=== PATIENT | male | born 1995 | race Caucasian/White ===

== ENCOUNTER 2021-01-04 09:36 | Inpatient (IN) | payer BC, SELFPAY ==
[2021-01-04 09:40] VITALS: BP 136/75; PULSE 89; RESP 22; TEMP 36.6; O2SAT 100
--- NOTE | 2021-01-04 09:53 | DI.US_ITS ---
Exam(s) US ABDOMEN LIMITED EXAM: US ABDOMEN LIMITED CLINICAL HISTORY: RUQ and epigastric pain, please comment on pancrea TECHNIQUE: Ultrasound abdomen performed using standard protocol. COMPARISON: No exams were available for comparison FINDINGS: There is no ascites evident. LIVER: There are no hepatic lesions evident nor dilatation of intrahepatic ducts. GALLBLADDER/BILIARY: There are no gallstones. No gallbladder wall edema nor pericholecystic fluid. The common hepatic duct isnot dilated, measuring 3mm at the level of kingsley hepatis. PANCREAS: There is no evidence of pancreatic mass nor dilatation of the pancreatic duct. RIGHT KIDNEY:No evidence of solid mass, calculus, nor hydronephrosis. No cortical cysts evident. IMPRESSION: 1. No evidence of cholelithiasis nor dilatation of the biliary tree. 2. No other significant ultrasound findings in the right upper quadrant. 3. There is no ascites. DATA REPOSITORY:
--- NOTE | 2021-01-04 09:56 | ED.GENADUL_ITS ---
Discharge Plan Disposition Patient Disposition: [facility] INPATIENT Condition: Stable Discharge Details Clinical Impression: Intractable vomiting with nausea, Gilbert disease Admit Date/Time: 01/04/21 17:03 Admit Provider: Bladimir Newby Attending Provider: Bladimir Newby Primary Care Provider: Domingo Hedrick ED Provider: Maritza Cisneros Discharge Data Discharge Date/Time-TO BE ENTERED AT DEPARTURE: 01/04/21 18:26 Medical Decision Making Patient initially feeling symptomatically improved after Compazine, Zofran, and Phenergan, received 3 L of IV hydration, however on reassessment, patient is vomiting again after p.o. challenge He denies any history of cannabis use History of anxiety denies any history similar to this in the past. He has a CT scan that did not show acute abnormality He has an ultrasound that does not show acute abnormality, his bilirubin is 6, his previous at [facility] was 1.7 His mag is stable and electrolytes are otherwise stable, he does have a gap of 18 At this time, patient is still quite nauseous and I think she would benefit from admission and observation I reviewed patient's prior diagnostic labs and emergency room assessment from [facility] Medical Records Medical records reviewed: Yes I reviewed the patient's medical records. Lab Data Lab results reviewed: Yes I reviewed the patient's lab results. ECG Data Prior ECG tracings: available for review HPI General Mode of arrival: ambulatory . Date/Time Provider Initiated Documentation: 01/04/21 09:43 . Limitations to Documentation: no limitations . Information obtained by: patient . HPI Narrative: This 25-year-old male presents with report of vomiting, nausea, abdominal pain. Abdominal pain started first reportedly approximately a week prior to arrival. He states that predominantly when he ate and drink he would get a pressure in his upper abdomen. He denies any chest pain or shortness of breath. He states he feels weak and lightheaded but not dizzy. He denies any history of alcoholism or illicit drug use. He denies any known sick contacts. He denies any cough or urinary symptoms. Related Data Home Medications Medication Instructions Recorded Confirmed ondansetron HCl 4 mg PO Q6H PRN 01/04/21 01/04/21 Allergies Allergy/AdvReac Type Severity Reaction Status Date / Time No Known Allergies Allergy Unverified 01/04/21 09:42 General Stated Complaint: Nausea/Vomit/Diar JAMAL: 3 Review of Systems All systems reviewed & are unremarkable except as noted in HPI and below PFSH Social History Smoking/Tobacco Use Status: Never Smoking risk assessment performed?: Yes Alcohol Intake: never Substance use type: does not use Do you feel safe at home: Yes Do you feel safe in your relationship?: Yes Exam Const General: cooperative and ill appearing Orientation: alert and oriented x3 HENMT Other: Moist mucous membrane Eyes Other: icterus Chest Chest: normal inspection of the chest Resp Effort & Inspection: normal respiratory effort Cardio Rate: regular rate GI Other: Right upper quadrant and epigastric abdominal tenderness Skin Other: Jaundice noted Neuro General: patient alert and patient oriented x3 Extrem Other: Distal pulses intact Course Vital Signs Vital signs: Vital Signs Temperature 36.6 C 01/04/21 09:40 Pulse 89 01/04/21 09:40 Respiratory Rate 22 01/04/21 09:40 Blood Pressure 136/75 01/04/21 09:40 Pulse Oximetry 100 01/04/21 09:40 Temperature 36.6 C 01/04/21 09:40 Temperature Source Temporal Artery Scan 01/04/21 09:40 Pulse 89 01/04/21 09:40 Respiratory Rate 22 01/04/21 09:40 Respiratory Effort Non-Labored 01/04/21 09:43 Blood Pressure 136/75 01/04/21 09:40 Blood Pressure Position Sitting 01/04/21 09:40 Pulse Oximetry 100 01/04/21 09:40 Oxygen Delivery Method Room Air 01/04/21 09:40 Oxygen Flow Rate 0 01/04/21 09:40 Pain Level 7 01/04/21 09:40
[2021-01-04] MEDS: Ondansetron 4 MG/2 ML VIAL IVP (10:16)
[2021-01-04 10:18] LABS: Abs Immature Grans 0.02 10^3/uL (0.0-0.06); Absolute Basophil Count 0.03 10^3/uL (0.0-0.2); Absolute Eosinophil Count 0.03 10^3/uL (0.0-0.7); Absolute Lymphocyte Count 1.26 10^3/uL (1.2-3.4); Absolute Monocyte Count 0.65 10^3/uL (0.1-0.8); Absolute Neutrophil Count 5.59 10^3/uL (1.2-6.7); Basophils % 0.4; Eosinophils % 0.4; HCT 44.2 % (40.0-50.0); HGB 15.8 g/dL (13.5-17.5); Immature Grans % 0.3; Lymphocytes % 16.6; MCH 31.6 pg (27.0-33.0); MCHC 35.7 % (32.0-36.0); MCV 88.4 fL (80-95); MPV 10.1 fL (8.0-11.0); Monocytes % 8.6; Neutrophils % 73.7; Nucleated RBC 0 %; Platelet Count 285 10^3/uL (130-400); RDW 11.5 % (11.8-14.1); RDW-SD 36.8 fL; WBC 7.58 10^3/uL (4.4-10.8)
[2021-01-04] MEDS: fentaNYL 100 MCG/2 ML VIAL 50 MCG IVP (10:25)
[2021-01-04] MEDS: Normal Saline 1,000 ML 1000 ML IV (10:26)
[2021-01-04] MEDS: Prochlorperazine 10 MG/2 ML VIAL IVP (10:32)
[2021-01-04 10:37] LABS: ALT 22 U/L (16-63); AST 28 U/L (15-37); Albumin 4.7 g/dL (3.4-5.0); Alkaline Phosphatase 67 U/L (46-116); Amylase 37 U/L (25-115); BUN 14 mg/dL (7-18); CREATININE 1.2 mg/dL (0.70-1.30); Calcium 9.5 mg/dL (8.5-10.1); Chloride 101 mmol/L (98-107); Glucose 96 mg/dL (74-106); Lipase 88 U/L (73-393); Potassium 3.7 mmol/L (3.5-5.1); Sodium 140 mmol/L (136-145); Total Protein 8.4 g/dL (6.4-8.2)
[2021-01-04 10:38] LABS: Magnesium 2.4 mg/dL (1.8-2.4)
[2021-01-04 11:19] LABS: Bilirubin, Direct 0.3 mg/dL (0.0-0.2)
--- NOTE | 2021-01-04 11:45 | RT.EKG_ITS ---
APPROVED REPORT Exam: Resting ECG Reason for Exam: multiple antiemetics Patient Location: E HR:80 bpm ECG Measurements Heart Rate 80 AXIS OK 102 P 77 QRSd 87 QRS 74 QT 386 T 21 QTc 445 Conclusion Sinus rhythm...normal P axis, V-rate 60- 99 QRS okay, [id number]. No STEMI, non-diagnostic EKG. I have reviewed and interpreted ECG and agree with software generated interpretation.
[2021-01-04 11:59] LABS: INR 1.1 (0.9-1.1); Prothrombin Time 11.3 sec (9.3-11.0)
[2021-01-04] MEDS: Lactated Ringers 1,000 ML 2000 ML IV (12:18)
--- NOTE | 2021-01-04 12:45 | DI.CT_ITS ---
Exam(s) CT ABDOMEN PELVIS W EXAM: CT ABDOMEN PELVIS W CLINICAL HISTORY: persistent vomiting, epigastric pain. TECHNIQUE: Imaging Protocol: Axial computed tomography images with coronal and sagittal reformatted images were created and reviewed CONTRAST MATERIAL: Intravenous: Omnipaque 100cc Oral: None COMPARISON: No exams were available for comparison FINDINGS: VISUALIZED LUNG BASES: No nodules nor pleural effusions evident. ABDOMEN: There is no ascites. LIVER: There are no focal hepatic lesions evident . GALLBLADDER/BILIARY: No obvious gallbladder pathology. CBD is not dilated. PANCREAS: No evidence of pancreatic mass nor dilatation of the pancreatic duct. SPLEEN: Spleen is not enlarged. No obvious intrasplenic lesions. Splenic and portal veins are paten t. ADRENALS: There are no significant adrenal masses. KIDNEYS:No cysts evident. No solid renal masses. No calculi nor hydronephrosis.. ABDOMINAL AORTA: Abdominal aorta is not enlarged. LYMPH NODES:There is no retroperitoneal nor paraaortic adenopathy. ABDOMINAL WALL: No evidence of significant anterior abdominal wall nor inguinal hernia. GI: Transverse colon exhibit some a somewhat colitis-type pattern although this may be mimicked by un marcello distension. No bowel obstruction. No free air PELVIS: GI: Appendix is not able to be seen. No obvious appendicitis.No evidence of sigmoid diverticulitis. LYMPH NODES: There is no intrapelvic nor inguinal adenopathy. REPRODUCTIVE: Prostate and seminal vesicles unremarkable. URINARY BLADDER: No calculi nor obvious masses evident OSSEOUS: No significant osseous lesions. There are bilateral pars defects at the L5 level with mild anterolisthesis of L5 upon S1. IMPRESSION: 1. There is subtle suggestion of a colitis-type pattern in the transverse colon. Correlation with cl inical findings recommended as this finding can be mimicked by under distension due to lack of oral c ontrast therein. 2. No evidence of appendicitis. Appendix may be surgically absent. 3. Bilateral pars defects at L5. Mild anterolisthesis L5 upon S1 evident. 4. RADIATION DOSE DELIVERED: 711.8mGy.cm Total DLP DATA REPOSITORY: All CT scans at this facility are submitted to the National Radiology Data Registry (NRDR) Dose Index Registry (DIR) with the [employer] ([employer]). RADIATION OPTIMIZATION: All CT scans at this facility use at least one of these dose optimization te chniques: automated exposure control; mA and/or kV adjustment per patient size (includes targeted exa ms where dose is matched to clinical indication); or iterative reconstruction.
[2021-01-04 13:43] VITALS: RESP 16
[2021-01-04] MEDS: Omnipaque 350 MG/ML 100 ML BTL IV (14:10)
[2021-01-04] MEDS: Normal Saline - Diluent 50 ML VIAL IV (14:11)
[2021-01-04] MEDS: Lactated Ringers 1,000 ML 1000 ML IV (14:27)
[2021-01-04 15:01] VITALS: BP 124/56; PULSE 85; RESP 16; TEMP 37; O2SAT 100
[2021-01-04 15:52] LABS: BUN 11 mg/dL (7-18); Bilirubin, Total 4.4 mg/dL (0.2-1.0); CREATININE 1.2 mg/dL (0.70-1.30); Calcium 8.4 mg/dL (8.5-10.1); Chloride 104 mmol/L (98-107); Glucose 92 mg/dL (74-106); Potassium 3.7 mmol/L (3.5-5.1); Sodium 141 mmol/L (136-145)
[2021-01-04] MEDS: LORazepam 2 MG/ML VIAL 1 MG IVP (15:52)
[2021-01-04 16:22] LABS: Source Nasal/Nares
--- NOTE | 2021-01-04 17:35 | HPE_ITS ---
Date of service: 01/05/21 Time of Service: 07:46 Assessment and Plan Assessment and plan (1) Intractable vomiting with nausea: Status: Acute Assessment and plan: Scopolamine patch ordered PRN Phenergan IV LR at 100ml/hr. UDS pending. Hint of transverse colon colitis; likely viral given no diarrhea. (2) Gilbert disease: Status: Acute Assessment and plan: Expect elevated bilirubin that increases with illness such as his current one. History of Present Illness History of Present Illness Chief Complaint: nausea and vomiting Narrative: This is a 25 yo male with a PMH of Gilbert's disease that presented with N/V/abd pain; onset appx 1 week prior to arrival. He notes symptoms mostly with food/fluids. He notes a pressure in his upper abd. No acid brash noted. No diarrhea. No F/C, cough/sputum. He denied marijuana use, alcohol or illicit drug use. He did endorse improvement in symptoms with hot showers. He reported having some anxiety. His w/u in the ED showed unremarkable lab other than a total bilirubin of 6 that decreased to 4.[address] abd/pelvis with a suggested subtle colitis- type patter in the transverse colon. Abd US was unremarkable. Covid test negative. UDS pending. He received 3L IV fluids, compazine, zofran and phenergan with initial improvement, then had an episode of vomiting. Admitted for further ongoing hydration, antiemetics, monitoring. Review of Systems All systems reviewed & are unremarkable except as noted in HPI and below PFSH Social History Smoking/Tobacco Use Status: Never Smoking risk assessment performed?: Yes Alcohol Intake: never Substance use type: does not use Do you feel safe at home: Yes Do you feel safe in your relationship?: Yes Meds Allergies and Home Medications Allergies Allergy/AdvReac Type Severity Reaction Status Date / Time No Known Allergies Allergy Unverified 01/04/21 09:42 Home Medications Medication Instructions Recorded Confirmed Type ondansetron HCl 4 mg PO Q6H PRN 01/04/21 01/04/21 History Exam Narrative Exam Narrative: Sitting up in bed. Const General: cooperative, well developed, disheveled and ill appearing Nutritional Appearance: average body habitus Orientation: alert and oriented x3 HENMT Head: normocephalic and atraumatic Eyes General: appearance normal, both eyes and all related structures Sclera: scleral abnormality bilaterally (icterus) Neck Neck: full ROM and no JVD Resp Effort & Inspection: normal respiratory effort Auscultation: clear to auscultation bilaterally Cardio Rate: regular rate Rhythm: regular rhythm Heart Sounds: S1 normal and S2 normal GI Palpation: soft and tender (mild in upper abd.) Skin General skin exam: no rashes or lesions noted Extrem General: no pedal edema and no calf tenderness Results Labs Result diagrams: 01/04/21 10:11 01/04/21 15:34 Labs: Laboratory Results - last 24 hr 01/04/21 01/04/21 01/04/21 10:11 10:11 10:11 WBC 7.58 RBC 5.00 Hgb 15.8 Hct 44.2 MCV 88.4 MCH 31.6 MCHC 35.7 RDW 11.5 L Plt Count 285 MPV 10.1 Immature Gran % 0.3 Neutrophils % 73.7 Lymphocytes % 16.6 Monocytes % 8.6 Eosinophils % 0.4 Basophils % 0.4 Nucleated RBC % 0 Absolute Neutrophils 5.59 Absolute Lymphocytes 1.26 Absolute Monocytes 0.65 Absolute Eosinophils 0.03 Absolute Basophils 0.03 PT INR Sodium 140 Potassium 3.7 Chloride 101 Carbon Dioxide 21.0 Anion Gap 18.0 H BUN 14 Creatinine 1.2 Estimated GFR/1.73 m2 >= 60.00 Glucose 96 Calcium 9.5 Magnesium 2.4 Total Bilirubin 6.0 H Conjugated Bilirubin AST 28 ALT 22 Alkaline Phosphatase 67 Total Protein 8.4 H Albumin 4.7 Amylase 37 Lipase 88 COVID-19 Source 01/04/21 01/04/21 01/04/21 10:11 11:42 14:20 WBC RBC Hgb Hct MCV MCH MCHC RDW Plt Count MPV Immature Gran % Neutrophils % Lymphocytes % Monocytes % Eosinophils % Basophils % Nucleated RBC % Absolute Neutrophils Absolute Lymphocytes Absolute Monocytes Absolute Eosinophils Absolute Basophils PT 11.3 H INR 1.1 Sodium Cancelled Potassium Cancelled Chloride Cancelled Carbon Dioxide Cancelled Anion Gap Cancelled BUN Cancelled Creatinine Cancelled Estimated GFR/1.73 m2 Cancelled Glucose Cancelled Calcium Cancelled Magnesium Total Bilirubin Conjugated Bilirubin 0.3 H AST ALT Alkaline Phosphatase Total Protein Albumin Amylase Lipase COVID-19 Source 01/04/21 01/04/21 15:34 16:18 WBC RBC Hgb Hct MCV MCH MCHC RDW Plt Count MPV Immature Gran % Neutrophils % Lymphocytes % Monocytes % Eosinophils % Basophils % Nucleated RBC % Absolute Neutrophils Absolute Lymphocytes Absolute Monocytes Absolute Eosinophils Absolute Basophils PT INR Sodium 141 Potassium 3.7 Chloride 104 Carbon Dioxide 26.0 Anion Gap 11.0 BUN 11 Creatinine 1.2 Estimated GFR/1.73 m2 >= 60.00 Glucose 92 Calcium 8.4 L Magnesium Total Bilirubin 4.4 H Conjugated Bilirubin AST ALT Alkaline Phosphatase Total Protein Albumin Amylase Lipase COVID-19 Source Nasal/Nares Last Vital Signs Temp 37.0 C 01/04/21 15:01 Pulse 85 01/04/21 15:01 Resp 16 01/04/21 15:01 BP 124/56 L 01/04/21 15:01 Pulse Ox 100 01/04/21 15:01
[2021-01-04 18:26] VITALS: BP 136/75; PULSE 92; RESP 18; TEMP 36.6; O2SAT 99
[2021-01-04 18:34] VITALS: BP 151/89; PULSE 92; RESP 18; TEMP 37.6; O2SAT 99
[2021-01-04] MEDS: Lactated Ringers 1,000 ML 100 ML IV (19:04)
[2021-01-04] MEDS: Scopolamine 1 MG/3 DAYS PATCH TD (19:14)
[2021-01-04 23:12] LABS: COVID-19 PCR Negative (Negative)
[2021-01-04 23:25] VITALS: BP 132/70; PULSE 90; RESP 18; TEMP 36.6; O2SAT 95
[2021-01-05] MEDS: Lactated Ringers 1,000 ML 100 ML IV ×2 (05:09→16:05)
[2021-01-05 07:49] LABS: Abs Immature Grans 0.02 10^3/uL (0.0-0.06); Absolute Basophil Count 0.03 10^3/uL (0.0-0.2); Absolute Eosinophil Count 0.09 10^3/uL (0.0-0.7); Absolute Lymphocyte Count 2.03 10^3/uL (1.2-3.4); Absolute Neutrophil Count 4.07 10^3/uL (1.2-6.7); Basophils % 0.4; Eosinophils % 1.3; HCT 37.7 % (40.0-50.0); HGB 12.7 g/dL (13.5-17.5); Immature Grans % 0.3; Lymphocytes % 29.3; MCH 30.7 pg (27.0-33.0); MCHC 33.7 % (32.0-36.0); MCV 91.1 fL (80-95); MPV 10.5 fL (8.0-11.0); Monocytes % 10.1; Neutrophils % 58.6; Nucleated RBC 0 %; Platelet Count 232 10^3/uL (130-400); RBC 4.14 10^6/uL (4.36-5.78); RDW 11.7 % (11.8-14.1); RDW-SD 39.2 fL; WBC 6.94 10^3/uL (4.4-10.8)
[2021-01-05 08:00] LABS: ALT 15 U/L (16-63); AST 10 U/L (15-37); Albumin 3.3 g/dL (3.4-5.0); Alkaline Phosphatase 48 U/L (46-116); Anion Gap 10.3 mmol/L (3-11); BUN 8 mg/dL (7-18); Bilirubin, Total 4.5 mg/dL (0.2-1.0); CO2 25.7 mmol/L (21.0-32.0); CREATININE 1.1 mg/dL (0.70-1.30); Calcium 8.3 mg/dL (8.5-10.1); Chloride 106 mmol/L (98-107); Glucose 84 mg/dL (74-106); Potassium 3.4 mmol/L (3.5-5.1); Sodium 142 mmol/L (136-145)
[2021-01-05 08:17] VITALS: BP 104/57; PULSE 76; RESP 17; TEMP 37.4; O2SAT 98
[2021-01-05] MEDS: Pantoprazole 40 MG VIAL IVP (08:29)
--- NOTE | 2021-01-05 08:52 | NUR.NOTE ---
nursing has educated pt on need for urine sample. Patient is fully aware. Patient has voided into toilet instead of sample cup serval times. Nursing Note:
[2021-01-05 09:14] LABS: Bilirubin Small (Negative); Blood Negative (Negative); Clarity Clear (Clear); Glucose Negative (Negative); Ketones >=160 mg/dL (Negative); Leukocyte Esterase Negative (Negative); Nitrite Negative (Negative); Specific Gravity >= 1.030 (1.005-1.025); Urobilinogen 0.2 EU/dL (Up TO 0.2)
[2021-01-05 09:22] LABS: Bacteria Negative HPF (Negative); C & S Indicated? No; Casts 3-5 Hyaline LPF (Negative); Crystals Negative HPF (Negative); Epithelial Cells Rare HPF (Negative); Mucus Moderate (Negative); RBC Negative HPF (0-2); WBC Negative HPF (0-5)
--- NOTE | 2021-01-05 09:49 | INITIAL_ITS ---
- If Service Date Differs Date of service: 01/05/21 Time of Service: 09:49 Care Management Initial Assess REASON FOR HOSPITALIZATION:: Intractable vomiting PAST MEDICAL HISTORY/PAST SURGICAL HISTORY:: Gilbert disease, intractable vomiting with nausea PREVIOUS FUNCTIONAL STATUS/SOCIAL/FAMILY SUPPORTS:: Resides in [place], independent at baseline. CURRENT FUNCTIONAL STATUS:: Remains nauseous today, able to drink more fluids this afternoon per provider. ADVANCE DIRECTIVES:: None on file. Has patient been provided with info about the portal/API?: No Did the patient sign up for the portal?: No CODE STATUS:: Full Code INSURANCE COVERAGE / FINANCIAL ISSUES:: BC/BS CURRENT HOME/COMMUNITY SERVICES/EQUIPMENT:: None PRIMARY CARE PHYSICIAN:: Domingo Hedrick POTENTIAL DISCHARGE NEEDS:: Follow up appointments. PATIENT/FAMILY EDUCATION NEEDS:: Review discharge instructions, discuss Ask Me Three. ANTICIPATED BARRIERS TO DISCHARGE:: None identified. TRANSPORTATION:: Via private vehicle. PLAN:: Wai will return home when ready per MD. He will follow up with his PCP and plan of care as prescribed. No additional services anticipated at this time. He will transport via private vehicle.
[2021-01-05] MEDS: LORazepam 2 MG/ML VIAL 0.5 MG IVP ×3 (10:14→22:39)
[2021-01-05 10:20] LABS: *AMPHETAMINES SCREEN URINE Negative (Negative); *BARBITURATES SCREEN URINE Negative (Negative); *BENZODIAZEPINES SCREEN URINE Negative (Negative); Cannabinoids THC Negative (Negative); Cocaine Screen,Urine Negative (Negative); METHADONE URINE SCREEN Negative (Negative); OPIATES URINE SCREEN Negative (Negative)
[2021-01-05 10:21] LABS: Tricyclic Antidepressants Negative (Negative)
--- NOTE | 2021-01-05 14:10 | W.PM.PROGNOT ---
Date of Service Date of service: 01/05/21 Time of Service: 14:15 Assessment and Plan Assessment and plan (1) Intractable vomiting with nausea: Status: Acute Assessment and plan: Scopolamine patch ordered PRN Phenergan Cont IV LR at 100ml/hr until taking in adequate oral fluids. UDS neg. Hint of transverse colon colitis; likely viral given no diarrhea. (2) Gilbert disease: Status: Acute Assessment and plan: Expect elevated bilirubin that increases with illness such as his current one. Now stable at 4.4 and 4.5. Subjective Subjective Patient reports: nausea and afebrile; denies tolerating liquids well and shortness of breath Interval history since last seen: Slept well. Nausea with sips of clear liquids this AM Was able to drink more clears after Phenergan at lunch. Exam Const General: well developed and other (appears fatigued) Nutritional Appearance: average body habitus Orientation: awake and oriented x3 Eyes Sclera: scleral abnormality (icterus) Pupils: PERRL Resp Effort & Inspection: normal respiratory effort Auscultation: clear to auscultation bilaterally Cardio Rate: regular rate Rhythm: regular rhythm Heart Sounds: S1 normal and S2 normal GI Palpation: soft and tender (very mild in upper abd. No guarding/rebound) Skin General skin exam: no rashes or lesions noted Psych Appearance: grossly normal Mental Status: mental status grossly normal Affect: blunted Objective Last Vital Signs Temp 37.4 C 01/05/21 08:17 Pulse 76 01/05/21 08:17 Resp 17 01/05/21 08:17 BP 104/57 L 01/05/21 08:17 Pulse Ox 98 01/05/21 08:17 Laboratory Results - last 24 hr 01/04/21 01/04/21 01/04/21 14:20 15:34 16:18 WBC RBC Hgb Hct MCV MCH MCHC RDW Plt Count MPV Immature Gran % Neutrophils % Lymphocytes % Monocytes % Eosinophils % Basophils % Nucleated RBC % Absolute Neutrophils Absolute Lymphocytes Absolute Monocytes Absolute Eosinophils Absolute Basophils Sodium Cancelled 141 Potassium Cancelled 3.7 Chloride Cancelled 104 Carbon Dioxide Cancelled 26.0 Anion Gap Cancelled 11.0 BUN Cancelled 11 Creatinine Cancelled 1.2 Estimated GFR/1.73 m2 Cancelled >= 60.00 Glucose Cancelled 92 Calcium Cancelled 8.4 L Total Bilirubin 4.4 H AST ALT Alkaline Phosphatase Total Protein Albumin Urine Color Urine Clarity Urine pH Ur Specific [place] Urine Protein Urine Ketones Urine Blood Urine Nitrite Urine Bilirubin Urine Urobilinogen Ur Leukocyte Esterase Urine RBC Urine WBC Ur Epithelial Cells Urine Crystals Urine Bacteria Urine Casts Urine Mucus Ur Culture Indicated? Urine Glucose Urine Opiates Screen Urine Methadone Screen Ur Barbiturates Screen Ur Tricyclics Screen Ur Amphetamines Screen U Benzodiazepines Scrn Urine Cocaine Screen Ur THC Screen COVID-19 Source Nasal/Nares SARS-CoV-2 (PCR) Negative 01/05/21 01/05/21 01/05/21 07:05 07:05 08:58 WBC 6.94 RBC 4.14 L Hgb 12.7 L D Hct 37.7 L MCV 91.1 MCH 30.7 MCHC 33.7 RDW 11.7 L Plt Count 232 MPV 10.5 Immature Gran % 0.3 Neutrophils % 58.6 Lymphocytes % 29.3 Monocytes % 10.1 Eosinophils % 1.3 Basophils % 0.4 Nucleated RBC % 0 Absolute Neutrophils 4.07 Absolute Lymphocytes 2.03 Absolute Monocytes 0.70 Absolute Eosinophils 0.09 Absolute Basophils 0.03 Sodium 142 Potassium 3.4 L Chloride 106 Carbon Dioxide 25.7 Anion Gap 10.3 BUN 8 Creatinine 1.1 Estimated GFR/1.73 m2 >= 60.00 Glucose 84 Calcium 8.3 L Total Bilirubin 4.5 H AST 10 L ALT 15 L Alkaline Phosphatase 48 Total Protein 6.0 L Albumin 3.3 L Urine Color Yellow Urine Clarity Clear Urine pH 6.0 Ur Specific [place] >= 1.030 H Urine Protein Trace H Urine Ketones >=160 H Urine Blood Negative Urine Nitrite Negative Urine Bilirubin Small H Urine Urobilinogen 0.2 Ur Leukocyte Esterase Negative Urine RBC Negative Urine WBC Negative Ur Epithelial Cells Rare Urine Crystals Negative Urine Bacteria Negative Urine Casts 3-5 Hyaline Urine Mucus Moderate Ur Culture Indicated? No Urine Glucose Negative Urine Opiates Screen Urine Methadone Screen Ur Barbiturates Screen Ur Tricyclics Screen Ur Amphetamines Screen U Benzodiazepines Scrn Urine Cocaine Screen Ur THC Screen COVID-19 Source SARS-CoV-2 (PCR) 01/05/21 08:58 WBC RBC Hgb Hct MCV MCH MCHC RDW Plt Count MPV Immature Gran % Neutrophils % Lymphocytes % Monocytes % Eosinophils % Basophils % Nucleated RBC % Absolute Neutrophils Absolute Lymphocytes Absolute Monocytes Absolute Eosinophils Absolute Basophils Sodium Potassium Chloride Carbon Dioxide Anion Gap BUN Creatinine Estimated GFR/1.73 m2 Glucose Calcium Total Bilirubin AST ALT Alkaline Phosphatase Total Protein Albumin Urine Color Urine Clarity Urine pH Ur Specific [place] Urine Protein Urine Ketones Urine Blood Urine Nitrite Urine Bilirubin Urine Urobilinogen Ur Leukocyte Esterase Urine RBC Urine WBC Ur Epithelial Cells Urine Crystals Urine Bacteria Urine Casts Urine Mucus Ur Culture Indicated? Urine Glucose Urine Opiates Screen Negative Urine Methadone Screen Negative Ur Barbiturates Screen Negative Ur Tricyclics Screen Negative Ur Amphetamines Screen Negative U Benzodiazepines Scrn Negative Urine Cocaine Screen Negative Ur THC Screen Negative COVID-19 Source SARS-CoV-2 (PCR)
--- NOTE | 2021-01-05 14:48 | PHA.REVIEW ---
Pharmacy Admission Review - Admission Clinical Review (Last Reviewed 01/05/21 @ 07:55 by Bladimir Newby MD) Gilbert disease (Acute) Intractable vomiting with nausea (Acute) No Known Allergies Allergy (Unverified 01/04/21 09:42) Resuscitation Status Full Code Height 5 ft 8.11 in Weight 77.111 kg - Renal Dosing Renal Dosing: BUN 8 mg/dL (7-18) 01/05/21 07:05 Creatinine 1.1 mg/dL (0.70-1.30) 01/05/21 07:05 Medications needing adjustments: Reviewed (Crcl ~97 mL/min current meds okay) - Anticoagulation Anticoagulation: Hgb 12.7 g/dL (13.5-17.5) L D 01/05/21 07:05 Hct 37.7 % (40.0-50.0) L 01/05/21 07:05 Plt Count 232 10^3/uL (130-400) 01/05/21 07:05 INR 1.1 (0.9-1.1) 01/04/21 11:42 Creatinine 1.1 mg/dL (0.70-1.30) 01/05/21 07:05 DVT Prophylaxis: N/A Therapeutic Anticoagulation: N/A - Opiate Usage Evaluate Pain Scale/Pains Meds: N/A - Relevant Labs Sodium 142 mmol/L (136-145) 01/05/21 07:05 Potassium 3.4 mmol/L (3.5-5.1) L 01/05/21 07:05 Chloride 106 mmol/L (98-107) 01/05/21 07:05 Magnesium 2.4 mg/dL (1.8-2.4) 01/04/21 10:11 Electrolytes, C-Reactive P, ESR: Reviewed (K+ is a little low, will mention to provider) - DM Control DM Control: Glucose 84 mg/dL (74-106) 01/05/21 07:05 Insulin Dosing: N/A - Heart Failure/AK EF%, SHANIA's, B-Blockers, Diuretics: N/A - BP Control BP Control: Blood Pressure 104/57 If elevated: Reviewed (BP has been up and down some this admission) - Qtc Review If Elevated: N/A (QTc 445 on admission) - IV to PO Switch IV Medications: Reviewed - Home Meds Home Med List reviewed: Reviewed Relevent Home Meds Not ordered & why?: ondansetron (PRN) - Current meds Current Medication Order Review: Reviewed - Comments Comments/Follow Ups: Watch BP, K+, labs and for med changes (IV to PO).
[2021-01-05 15:55] VITALS: BP 137/75; PULSE 86; RESP 19; TEMP 37.7; O2SAT 98
[2021-01-05] MEDS: Normal Saline Flush 10 ML SYR IVP ×3 (16:05→22:39)
[2021-01-05] MEDS: Ondansetron 4 MG/2 ML VIAL IVP ×2 (16:05→21:35)
[2021-01-05 21:34] VITALS: BP 133/73; PULSE 82; RESP 17; TEMP 37.5; O2SAT 96
[2021-01-06] MEDS: Lactated Ringers 1,000 ML 100 ML IV (01:48)
[2021-01-06 03:30] VITALS: BP 110/66; PULSE 89; RESP 14; TEMP 36.4; O2SAT 96
[2021-01-06 07:29] VITALS: BP 114/68; PULSE 64; RESP 16; TEMP 36.3; O2SAT 100
[2021-01-06] MEDS: Pantoprazole 40 MG VIAL IVP (08:12)
[2021-01-06] MEDS: Ondansetron 4 MG/2 ML VIAL IVP ×2 (08:12→15:27)
[2021-01-06] MEDS: Normal Saline Flush 10 ML SYR IVP ×6 (08:13→21:47)
[2021-01-06] MEDS: Metoclopramide 10 MG/2 ML VIAL IVP ×3 (11:24→21:46)
[2021-01-06] MEDS: Senna TAB 1 TAB PO (11:25)
[2021-01-06] MEDS: POTASSIUM CHLORIDE/0.9% NACL 1,000 ML 80 MEQ IV (11:30)
[2021-01-06] MEDS: LORazepam 2 MG/ML VIAL 0.5 MG IVP ×2 (14:54→21:46)
[2021-01-06 15:30] VITALS: BP 134/76; PULSE 76; RESP 17; TEMP 37.3; O2SAT 99
--- NOTE | 2021-01-06 15:44 | PDOC.CMPRO ---
Care Management Progress Note S/O: Wai was sitting up on the side of his bed when CM met with him. He reported feeling better and being able to hold down clear liquids including a Popsicle. Later in the day, MD reported Wai had become nauseous again and vomited as well. No change to overall plan. CM continues to follow. A: 25 year old male admitted to [facility] 01/04/21 for intractable vomitting P: Bladimir will return home when ready per MD, he will follow up with his PCP and plan of care as prescribed. He will transport via private vehicle with his , Sandy.
--- NOTE | 2021-01-06 16:53 | W.PM.PROGNOT ---
Date of Service Date of service: 01/06/21 Time of Service: 16:53 Assessment and Plan Assessment and plan (1) Intractable vomiting with nausea: Status: Acute Assessment and plan: Scopolamine patch ordered Better today and drank more liquids at noon; then vomitted an hour or so later Reglan 10mg IV now then QAC and HS. Cont IV LR until taking in adequate oral fluids. UDS neg. Hint of transverse colon colitis; likely viral given no diarrhea. (2) Gilbert disease: Status: Acute Assessment and plan: Expect elevated bilirubin that increases with illness such as his current one. Now stable at 4.4 and 4.5. Subjective Subjective Patient reports: no new complaints, pain is less, no bowel movement, nausea and afebrile Exam Narrative Exam Narrative: Sitting up in bed. Const General: cooperative, well developed, disheveled, ill appearing and other (appears fatigued) Nutritional Appearance: average body habitus Orientation: alert, awake and oriented x3 HENMT Head: normocephalic and atraumatic Eyes General: appearance normal, both eyes and all related structures Sclera: scleral abnormality (icterus) bilaterally (icterus) Pupils: PERRL Neck Neck: full ROM and no JVD Resp Effort & Inspection: normal respiratory effort Auscultation: clear to auscultation bilaterally Cardio Rate: regular rate Rhythm: regular rhythm Heart Sounds: S1 normal and S2 normal GI Palpation: soft and tender (very mild in upper abd. No guarding/rebound) Skin General skin exam: no rashes or lesions noted Extrem General: no pedal edema and no calf tenderness Psych Appearance: grossly normal Mental Status: mental status grossly normal Affect: blunted Objective Last Vital Signs Temp 36.3 C L 01/06/21 07:29 Pulse 64 01/06/21 07:29 Resp 16 01/06/21 07:29 BP 114/68 01/06/21 07:29 Pulse Ox 100 01/06/21 07:29
[2021-01-07 00:06] VITALS: BP 132/74; PULSE 78; RESP 18; TEMP 37; O2SAT 99
[2021-01-07] MEDS: POTASSIUM CHLORIDE/0.9% NACL 1,000 ML 80 MEQ IV ×2 (00:15→13:56)
[2021-01-07 07:35] VITALS: BP 125/61; PULSE 72; RESP 17; TEMP 37; O2SAT 98
[2021-01-07] MEDS: LORazepam 2 MG/ML VIAL 0.5 MG IVP ×3 (07:53→19:40)
[2021-01-07] MEDS: Metoclopramide 10 MG/2 ML VIAL IVP ×2 (07:54→11:23)
[2021-01-07] MEDS: Normal Saline Flush 10 ML SYR IVP ×7 (07:54→19:41)
[2021-01-07] MEDS: Pantoprazole 40 MG VIAL IVP (07:54)
[2021-01-07 08:12] LABS: ALT 15 U/L (16-63); AST 11 U/L (15-37); Albumin 3.7 g/dL (3.4-5.0); Alkaline Phosphatase 56 U/L (46-116); Anion Gap 12.8 mmol/L (3-11); BUN 8 mg/dL (7-18); Bilirubin, Total 5.2 mg/dL (0.2-1.0); CO2 23.2 mmol/L (21.0-32.0); CREATININE 0.9 mg/dL (0.70-1.30); Calcium 8.7 mg/dL (8.5-10.1); Chloride 101 mmol/L (98-107); Glucose 88 mg/dL (74-106); Potassium 3.8 mmol/L (3.5-5.1); Sodium 137 mmol/L (136-145); Total Protein 6.6 g/dL (6.4-8.2)
[2021-01-07] MEDS: Droperidol 5 MG/2 ML VIAL 2.5 MG IVP (14:13)
[2021-01-07 15:00] VITALS: BP 136/85; PULSE 78; RESP 14; TEMP 37; O2SAT 100
--- NOTE | 2021-01-07 16:38 | PGE_ITS ---
Date of Service Date of service: 01/07/21 Time of Service: 16:39 Assessment and Plan Assessment and plan (1) Intractable vomiting with nausea: Status: Acute Assessment and plan: Antiemetics haven't been very helpful. Emesis today after drinking fluids and had pudding at lunch [place] much better after a dose of droperidol. Diphenhydramine IV prn for N/V. May judiciously repeat droperidol if needed. (2) Gilbert disease: Status: Acute Assessment and plan: Expect elevated bilirubin that increases with illness such as his current one. Now stable at 4.4 and 4.5. Subjective Subjective Interval history since last seen: [place] somewhat less nauseated at noon and drank some fluids and ate some pudding. He then vomited. Droperidol given with good results. Exam Narrative Exam Narrative: Lying in bed. Const General: cooperative, well developed, disheveled, ill appearing and other (appears fatigued) Nutritional Appearance: average body habitus Orientation: alert, awake and oriented x3 HENMT Head: normocephalic and atraumatic Eyes General: appearance normal, both eyes and all related structures Sclera: scleral abnormality (icterus) bilaterally (icterus) Pupils: PERRL Neck Neck: full ROM and no JVD Resp Effort & Inspection: normal respiratory effort Auscultation: clear to auscultation bilaterally Cardio Rate: regular rate Rhythm: regular rhythm Heart Sounds: S1 normal and S2 normal GI Palpation: soft and tender (very mild in upper abd. No guarding/rebound) Skin General skin exam: no rashes or lesions noted Extrem General: no pedal edema and no calf tenderness Psych Appearance: grossly normal Mental Status: mental status grossly normal Affect: blunted Objective Last Vital Signs Temp 37.0 C 01/07/21 15:00 Pulse 78 01/07/21 15:00 Resp 14 01/07/21 15:00 BP 136/85 01/07/21 15:00 Pulse Ox 100 01/07/21 15:00 Laboratory Results - last 24 hr 01/07/21 07:40 Sodium 137 Potassium 3.8 Chloride 101 Carbon Dioxide 23.2 Anion Gap 12.8 H BUN 8 Creatinine 0.9 Estimated GFR/1.73 m2 >= 60.00 Glucose 88 Calcium 8.7 Total Bilirubin 5.2 H AST 11 L ALT 15 L Alkaline Phosphatase 56 Total Protein 6.6 Albumin 3.7
[2021-01-07] MEDS: Scopolamine 1 MG/3 DAYS PATCH TD (18:24)
--- NOTE | 2021-01-07 18:43 | CMPROGNOTE_ITS ---
Care Management Progress Note S/O: Wai remains inpatient, continuing with vomiting and nausea. No change to overall plan. CM continues to follow. A: 25 year old male admitted to [facility] 01/04/21 for intractable vomitting P: Bladimir will return home when ready per MD, he will follow up with his PCP and plan of care as prescribed. He will transport via private vehicle with his , Sandy.
[2021-01-07 23:25] VITALS: BP 127/78; PULSE 69; RESP 18; TEMP 37.1; O2SAT 95
--- NOTE | 2021-01-08 | DI.CT_ITS ---
Exam(s) CT HEAD WO/W EXAM: CT HEAD WO/W CLINICAL HISTORY: intractable nausea/vomiting.. TECHNIQUE: Imaging Protocol: Axial computed tomography images with coronal and sagittal reformatted images were created and reviewed. CONTRAST MATERIAL: Intravenous: Omnipaque 350 Contrast volume:100 Contrast route:IV - COMPARISON: No exams were available for comparison FINDINGS: Ventricles and Extra axial spaces: Normal in size and morphology for the patient's age. Hemorrhage: None. Cerebral parenchyma: Normal. Enhancement: No suspicious enhancement. Midline shift: None. Brainstem/Cerebellum: Normal. Calvarium: Normal. Visualized Paranasal sinuses/Mastoids: Tiny right maxillary mucous retention cyst. Otherwise clear. IMPRESSION: Normal CT scan of the head. RADIATION DOSE DELIVERED: 1,494.38mGy.cm Total DLP DATA REPOSITORY: All CT scans at this facility are submitted to the National Radiology Data Registry (NRDR) Dose Index Registry (DIR) with the [employer] (ACR). RADIATION OPTIMIZATION: All CT scans at this facility use at least one of these dose optimization te chniques: automated exposure control; mA and/or kV adjustment per patient size (includes targeted exa ms where dose is matched to clinical indication); or iterative reconstruction.
[2021-01-08] MEDS: POTASSIUM CHLORIDE/0.9% NACL 1,000 ML 80 MEQ IV ×2 (04:18→19:45)
[2021-01-08 07:25] VITALS: BP 119/72; PULSE 79; RESP 17; TEMP 36.8; O2SAT 95
[2021-01-08] MEDS: Pantoprazole 40 MG VIAL IVP (08:04)
[2021-01-08] MEDS: Normal Saline Flush 10 ML SYR IVP ×6 (08:05→18:52)
[2021-01-08] MEDS: Lactated Ringers 500 ML IV (08:53)
[2021-01-08] MEDS: Droperidol 5 MG/2 ML VIAL 1.25 MG IVP (08:56)
--- NOTE | 2021-01-08 14:39 | W.NUTRFU ---
Date of service: 01/08/21 Time of Service: 14:39 Nutritional Follow up NOTE: Assessment: 25yo male admitted for intractable vomiting/nausea with PMH significant only for [place] Disease. Meds: diphenhydramine, metoclopramide, patoprazole, KCl and scopolamine. Unable to assess for weight changes due to lack of data. Pt unavailable at time of visit (bathroom). No concerns with current BMI of 25.8. PO intake erratic, depending on nausea level. Diagnosis: no nutrition diagnosis at this time Intervention: advance diet as tolerated Monitoring/evaluation: will monitor for consequences of low intake r/t vomiting: Hydration, nutrient intake, electrolytes. Pancho Khurram NDTR ? [employer] Time Spent in Nutritional Counseling and Treatment: 15
--- NOTE | 2021-01-08 16:20 | W.PM.PROGNOT ---
Date of Service Date of service: 01/08/21 Time of Service: 16:20 Assessment and Plan Assessment and plan (1) Intractable vomiting with nausea: Status: Acute Assessment and plan: LIttle improvement with antiemetics other than droperidol. Continue IV hydration. IV bolus also delivered today. CT head to r/o mass, evidence of increased pressure; likely low yeild given no other neurologic symptoms. Ativan prn Starvation ketosis noted early (fruity smelling breath, ketones in urine). With the minimal intake he has achieved, this appears to have improved. (2) Gilbert disease: Status: Acute Assessment and plan: Expect elevated bilirubin that increases with illness such as his current one. Total bili 4.4 > 4.5 > 5.2. Monitor. Subjective Subjective Patient reports: nausea and afebrile; denies diarrhea and vomiting Interval history since last seen: Pt able to keep down small amounts of intake today but not adequate to maintain hydration or nutrition. Droperidol given x1 again today with more relief than with other antiemetics. No COLLINS, visual changes. Exam Narrative Exam Narrative: Lying in bed. Const General: cooperative, well developed, disheveled, ill appearing and other (appears fatigued) Nutritional Appearance: average body habitus Orientation: alert, awake and oriented x3 HENMT Head: normocephalic and atraumatic Eyes General: appearance normal, both eyes and all related structures Sclera: scleral abnormality (icterus) bilaterally (icterus) Pupils: PERRL Neck Neck: full ROM and no JVD Resp Effort & Inspection: normal respiratory effort Auscultation: clear to auscultation bilaterally Cardio Rate: regular rate Rhythm: regular rhythm Heart Sounds: S1 normal and S2 normal GI Palpation: soft and tender (very mild in upper abd. No guarding/rebound) Skin General skin exam: no rashes or lesions noted Extrem General: no pedal edema and no calf tenderness Psych Appearance: grossly normal Mental Status: mental status grossly normal Affect: blunted Objective Last Vital Signs Temp 36.8 C 01/08/21 07:25 Pulse 79 01/08/21 07:25 Resp 17 01/08/21 07:25 BP 119/72 01/08/21 07:25 Pulse Ox 95 01/08/21 07:25
--- NOTE | 2021-01-08 17:28 | PDOC.CMPRO ---
Care Management Progress Note S/O: Wai remains inpatient, continuing with vomiting and nausea. No change to overall plan. CM continues to follow. A: 25 year old male admitted to [facility] 01/04/21 for intractable vomitting P: Bladimir will return home when ready per MD, he will follow up with his PCP and plan of care as prescribed. He will transport via private vehicle with his , Sandy.
[2021-01-08 18:21] VITALS: BP 122/71; PULSE 78; RESP 16; TEMP 36.6; O2SAT 100
[2021-01-08] MEDS: Omnipaque 350 MG/ML 100 ML BTL IJ (18:52)
[2021-01-08] MEDS: Normal Saline - Diluent 50 ML VIAL IV (18:52)
--- NOTE | 2021-01-08 19:24 | DI.VRAD_ITS ---
PROCEDURE INFORMATION: Exam: CT Head Without And With Contrast Exam date and time: 01/08/2021 4:21 PM Age: 25 years old Clinical indication: Other: Intractable nausea/vomiting. TECHNIQUE: Imaging protocol: Computed tomography of the head without and with intravenous contrast. COMPARISON: No relevant prior studies available. FINDINGS: Brain: No acute intracranial hemorrhage, mass-effect, midline shift, or extra-axial collection is seen. The barajas white matter differentiation appears preserved. No enhancing mass or other abnormal enhancement seen following contrast administration. Cerebral ventricles: The ventricular system and basilar cisterns appear appropriate in size and configuration. Paranasal sinuses: Focal soft tissue density material in the right maxillary sinus has an appearance suggesting retained mucus, a small mucous retention cyst, or a small inflammatory polyp. Otherwise, the visualized paranasal sinuses appear clear. Mastoid air cells: The mastoid air cells appear well-aerated. Auditory system: The middle ear cavities appear clear. Orbital cavity: The globes and intraorbital structures appear grossly intact. Vasculature: The dural venous sinuses enhance appropriately without evidence of dural venous sinus thrombosis. Bones/joints: The bony calvarium appears intact. No depressed skull fracture is seen. Soft tissues: No significant scalp lesion is seen. IMPRESSION: No acute intracranial abnormality seen. Dictated and Authenticated by: Samuel Jerez MD. Ordering:JONNY Garrison MD
[2021-01-08 23:45] VITALS: BP 112/69; PULSE 60; RESP 18; TEMP 36.5; O2SAT 99
[2021-01-09] MEDS: Metoclopramide 10 MG/2 ML VIAL IVP ×2 (04:57→12:42)
[2021-01-09 07:30] VITALS: BP 133/74; PULSE 74; RESP 17; TEMP 36.5; O2SAT 98
[2021-01-09] MEDS: Pantoprazole 40 MG VIAL IVP (07:44)
[2021-01-09] MEDS: Normal Saline Flush 10 ML SYR IVP ×2 (07:44→12:43)
[2021-01-09] MEDS: POTASSIUM CHLORIDE/0.9% NACL 1,000 ML 80 MEQ IV ×2 (07:45→21:47)
[2021-01-09 07:47] LABS: Abs Immature Grans 0.02 10^3/uL (0.0-0.06); Absolute Basophil Count 0.03 10^3/uL (0.0-0.2); Absolute Eosinophil Count 0.03 10^3/uL (0.0-0.7); Absolute Lymphocyte Count 1.08 10^3/uL (1.2-3.4); Absolute Monocyte Count 0.74 10^3/uL (0.1-0.8); Absolute Neutrophil Count 5.29 10^3/uL (1.2-6.7); Basophils % 0.4; Eosinophils % 0.4; HGB 14.9 g/dL (13.5-17.5); Immature Grans % 0.3; MCH 31.6 pg (27.0-33.0); MCHC 35.5 % (32.0-36.0); MCV 89.2 fL (80-95); MPV 10.5 fL (8.0-11.0); Monocytes % 10.3; Neutrophils % 73.6; Nucleated RBC 0 %; Platelet Count 255 10^3/uL (130-400); RBC 4.71 10^6/uL (4.36-5.78); RDW 11.3 % (11.8-14.1); RDW-SD 36.7 fL; WBC 7.19 10^3/uL (4.4-10.8)
[2021-01-09 08:00] LABS: ALT 15 U/L (16-63); AST 11 U/L (15-37); Albumin 3.9 g/dL (3.4-5.0); Alkaline Phosphatase 58 U/L (46-116); Anion Gap 15.3 mmol/L (3-11); BUN 9 mg/dL (7-18); CO2 20.7 mmol/L (21.0-32.0); CREATININE 0.9 mg/dL (0.70-1.30); Calcium 8.6 mg/dL (8.5-10.1); Chloride 98 mmol/L (98-107); Glucose 83 mg/dL (74-106); Potassium 3.9 mmol/L (3.5-5.1); Sodium 134 mmol/L (136-145); Total Protein 7.1 g/dL (6.4-8.2)
--- NOTE | 2021-01-09 16:08 | W.PM.PROGNOT ---
Date of Service Date of service: 01/09/21 Time of Service: 16:27 Assessment and Plan Assessment and plan (1) Intractable vomiting with nausea: Status: Acute Assessment and plan: Improved with scheduled reglan, which we will transition to PO. I suspect gastroparesis. Will trial a more substantive diet today. If patient is able to tolerate this tonight, can go home today with outpatient gastric emptying study. (2) Gilbert disease: Status: Acute Assessment and plan: benign. Repeat LFTs in am. (3) Discharge planning issues: Status: Acute Assessment and plan: Anticipate discharge home tomorrow. (4) DVT prophylaxis: Status: Acute Assessment and plan: Not required in an ambulatory 25 year old male. Subjective Subjective Interval history since last seen: States he feels better today. Less nausea (got nauseated a couple of times today, but has none now). Last vomited last night. Reports sore throat from vomiting. Denies dizziness, chest pain, shortness, of breath, nausea. Inquiring as to discharge today or tomorrow. Exam Narrative Exam Narrative: General: Very pleasant male, nontoxic appearing, sitting up in bed, A&Ox3 HEENT: EOMI, MMM Heart: RRR, no m/r/g Lungs: CTAB Abdomen: soft, nontender, nondistended Extremities: no edema BLE's. Objective Last Vital Signs Temp 36.5 C 01/09/21 07:30 Pulse 74 01/09/21 07:30 Resp 17 01/09/21 07:30 BP 133/74 01/09/21 07:30 Pulse Ox 98 01/09/21 07:30 Laboratory Results - last 24 hr 01/09/21 01/09/21 07:25 07:25 WBC 7.19 RBC 4.71 Hgb 14.9 Hct 42.0 MCV 89.2 MCH 31.6 MCHC 35.5 RDW 11.3 L Plt Count 255 MPV 10.5 Immature Gran % 0.3 Neutrophils % 73.6 Lymphocytes % 15.0 Monocytes % 10.3 Eosinophils % 0.4 Basophils % 0.4 Nucleated RBC % 0 Absolute Neutrophils 5.29 Absolute Lymphocytes 1.08 L Absolute Monocytes 0.74 Absolute Eosinophils 0.03 Absolute Basophils 0.03 Sodium 134 L Potassium 3.9 Chloride 98 Carbon Dioxide 20.7 L Anion Gap 15.3 H BUN 9 Creatinine 0.9 Estimated GFR/1.73 m2 >= 60.00 Glucose 83 Calcium 8.6 Total Bilirubin 5.0 H AST 11 L ALT 15 L Alkaline Phosphatase 58 Total Protein 7.1 Albumin 3.9
[2021-01-09] MEDS: Metoclopramide 10 MG TAB PO ×2 (17:09→20:49)
[2021-01-09 23:44] VITALS: BP 124/72; PULSE 78; RESP 18; TEMP 36.6; O2SAT 97
[2021-01-10] MEDS: Metoclopramide 10 MG TAB PO ×2 (06:58→12:31)
[2021-01-10 07:46] VITALS: BP 135/90; PULSE 71; RESP 18; TEMP 36.1; O2SAT 100
[2021-01-10] MEDS: Pantoprazole 40 MG VIAL IVP (08:43)
[2021-01-10] MEDS: Normal Saline Flush 10 ML SYR IVP (08:44)
[2021-01-10] MEDS: POTASSIUM CHLORIDE/0.9% NACL 1,000 ML 80 MEQ IV (09:15)
[2021-01-10 09:47] LABS: ALT 14 U/L (16-63); AST 10 U/L (15-37); Albumin 3.9 g/dL (3.4-5.0); Alkaline Phosphatase 55 U/L (46-116); Anion Gap 11.6 mmol/L (3-11); BUN 9 mg/dL (7-18); Bilirubin, Direct 0.3 mg/dL (0.0-0.2); Bilirubin, Total 4.8 mg/dL (0.2-1.0); CO2 24.4 mmol/L (21.0-32.0); Calcium 8.6 mg/dL (8.5-10.1); Chloride 98 mmol/L (98-107); Glucose 89 mg/dL (74-106); Magnesium 2.1 mg/dL (1.8-2.4); Potassium 3.8 mmol/L (3.5-5.1); Sodium 134 mmol/L (136-145)
[2021-01-10 10:39] LABS: Vitamin B12 417 pg/mL (193-986)
--- NOTE | 2021-01-10 12:05 | W.PM.DS.N ---
Date of service: 01/10/21 Time of Service: 12:05 DS: Diagnosis Discharge Diagnosis (1) Intractable vomiting with nausea: Status: Resolved (2) Gastroparesis: Status: Suspected (3) Gilbert disease: Status: Acute (4) Hypokalemia: Status: Resolved (5) B12 deficiency: Status: Acute (6) COVID-19 ruled out by laboratory testing: Status: Ruled-out Discharge Plan Disposition Patient Disposition: HOME Condition: Stable Discharge Details Reason For Visit: Intractable Vomiting Admit Date/Time: 01/06/21 16:00 Admit Provider: Bladimir Newby Attending Provider: Bladimir Newby Primary Care Provider: Domingo Hedrick Hospital Course Hospital Course: Mr Cantu is a 25 year old male with H/o Gilbert's disease, who was a patient on [facility] hospitalist service from 01/04/21 until 01/10/21 for intractable nausea/vomiting. His workup included a negative ultrasound of the abdomen, a CT of the abdomen/pelvis which showed possible colitis (which he does not have clinically), and a negative CT of the head, He was hydrated intravenously, and his potassium was repleted. We tried various antiemetics, but the one that seemed to have the most effect was metoclopramide, suggesting a possibility of gastroparesis. The patient is not diabetic. The patient is able to tolerate about 25% of his trays and is able to drink ensures, which we are encouraging, but will need follow up with GI - referral is being sent to [facility]. He is going home with instructions for low residue diet. The patient is being sent home with an order for a gastric emptying study. Care for patient as well as completion of his discharge summary took 45 minutes on the day of discharge. Home Meds and New Rx's Prescriptions: New metoclopramide HCl 10 mg Tablet 10 mg PO AC & HS Qty: 120 RF: 0 Sore Throat (phenol) 1.4 % Aerosol,[place] 180 ml mucous membrane QID PRN PRNQty: 0 RF: 0 pantoprazole [Protonix] 40 mg tablet,delayed release (DR/EC) 40 mg PO DAILY Qty: 30 RF: 0 sucralfate [Carafate] 1 gram tablet 1 g PO QACHS Qty: 120 RF: 0 cyanocobalamin (vitamin B-12) 1,000 mcg capsule 1,000 mcg PO DAILY Qty: 30 RF: 0 Discontinued ondansetron HCl 4 mg Tablet 4 mg PO Q6H PRNRF: 0 Discharge Instructions Instructions: Metoclopramide (By mouth), Low Fiber Diet (DC), Acute Nausea and Vomiting (DC), Vitamin B12 Deficiency (ED) Additional Instructions: Return to the hospital with any fever, bleeding, chest pain, shortness of breath. Follow a low fiber diet. Try to get to 1600 calories/day. Eat frequent small meals. Supplement with nutritional shakes such as ensure or boost three times a day. Follow up for a gastric emptying study and with GI. Follow up with your PCP. Referrals: GASTROENTEROLOGY,[facility] [OTHER] - (intractable nausea/vomiting) Domingo Hedrick [Primary Care Provider] - Activity:: Activity as Tolerated Equipment/Supplies:: No Equipment Needed Diet:: low fiber diet Discharge Orders Discharge Orders: Discharge Order (Routine); Ordered 01/10/21 Ordered By: Jaida Champion Other Ambulatory Orders: NM gastric emptying (Routine) Timeframe: 1 Week Facility: [facility] - Location: DIAGNOSTIC IMAGING Ordered By: Jaida Champion DS: Summary Time Spent with Patient providing and/or coordinating discharge services: Greater than 30 minutes Status at Discharge Functional status at discharge: independent ambulation Overall status at discharge: patient is progressing back to baseline Mental Status: mental status grossly normal Speech and Movement: speech and movement normal Mood: congruent mood Affect: normal affect Exam Narrative Exam Narrative: General: Very pleasant male, nontoxic appearing, sitting up in bed, A&Ox3 HEENT: EOMI, MMM Heart: RRR, no m/r/g Lungs: CTAB Abdomen: soft, nontender, nondistended Extremities: no edema BLE's. Psych Mental Status: mental status grossly normal Speech and Movement: speech and movement normal Mood: congruent mood Affect: normal affect DS: Data Vitals/I&O Vitals and I&O: Vital Signs Temperature 36.1 C L 01/10/21 07:46 Temperature Source Tympanic 01/10/21 07:46 Pulse 71 01/10/21 07:46 Pulse Rhythm Regular 01/10/21 08:30 Pulse Strength Normal 01/04/21 15:01 Respiratory Rate 18 01/10/21 07:46 Respiratory Effort Non-Labored 01/10/21 08:30 Respiratory Depth Normal 01/10/21 08:30 Respiratory Pattern Normal 01/10/21 08:30 Blood Pressure 135/90 01/10/21 07:46 Blood Pressure Mean 78 01/04/21 15:01 Blood Pressure Position Sitting 01/04/21 09:40 Pulse Oximetry 100 01/10/21 07:46 Oxygen Delivery Method Room Air 01/10/21 07:46 Oxygen Flow Rate 0 01/10/21 07:46 Pain Level 0 01/10/21 07:46 Comment 01/08/21 15:40 Intake & Output 01/09/21 01/10/21 01/10/21 23:59 11:59 23:59 Intake Total 860 / 2060 1017.333 / 1017.333 Output Total 1250 / 1250 Balance 860 / 1260 -232.667 / -232.667 Intake: IV 760 / 1960 917.333 / 917.333 Oral 100 / 100 100 / 100 Output: Urine 1250 / 1250 Other: Urine Color Yellow Yellow Urine Appearance Clear Clear Urine Odor None None Comment Urine not measured, Pt. voided in toilet. Voiding Methods Toilet Urinal Data Completed and Pending Completed studies during hospitalization [Text1]: US abdomen; 1. No evidence of cholelithiasis nor dilatation of the biliary tree. 2. No other significant ultrasound findings in the right upper quadrant. 3. There is no ascites. CT abdomen/pelvis: 1. There is subtle suggestion of a colitis-type pattern in the transverse colon. Correlation with clinical findings recommended as this finding can be mimicked by under distension due to lack of oral contrast therein. 2. No evidence of appendicitis. Appendix may be surgically absent. 3. Bilateral pars defects at L5. Mild anterolisthesis L5 upon S1 evident. CT head: Normal CT scan of the head. Labs on day of discharge: Labs from last 24 hours 01/10/21 09:30 Sodium 134 L Potassium 3.8 Chloride 98 Carbon Dioxide 24.4 Anion Gap 11.6 H BUN 9 Creatinine 1.0 Estimated GFR/1.73 m2 >= 60.00 Glucose 89 Calcium 8.6 Magnesium 2.1 Total Bilirubin 4.8 H Conjugated Bilirubin 0.3 H AST 10 L ALT 14 L Alkaline Phosphatase 55 Total Protein 7.0 Albumin 3.9 Vitamin B12 417 PFSH Social History Smoking/Tobacco Use Status: Never Smoking risk assessment performed?: Yes Alcohol Intake: never Substance use type: does not use Do you feel safe at home: Yes Do you feel safe in your relationship?: Yes
--- NOTE | 2021-01-10 17:23 | CMDISCH_ITS ---
- If Service Date Differs Date of service: 01/10/21 Time of Service: 17:23 LACE Index Scoring Tool - Questions: Length of Stay (in days): 4 - 6 Acuity (Admit via E.D.?): Yes E.D. Visits: 1 - Answers: Total Score: 8 Risk of Readmission: Low Risk Care Management Discharge Reason for Hospitalization: Intractable vomiting Discharge Plan: Bladimir will return home with nop new services. He will follow up with his PCP and plan of care as prescribed. He will transport via private v [facility] with his , Sandy. Patient/Family Education Needs: Review discharge instructions, discuss Ask Me Three.
== END 2021-01-10 14:35 | disposition home or self-care (01) | DRG 392 ==
LOC: ER 17:09 → MS 01-05 08:39
PROVIDERS: Internal Medicine; Nurse Practitioner Family; Admitting Provider Family Medicine; Emergency Provider Physician Assistant; PCP Physician Assistant Medical; Visit Provider Family Medicine
DX: K31.84 Gastroparesis (principal); R11.2 Nausea with vomiting, unspecified; E80.4 Gilbert syndrome; Z20.822 Contact with and (suspected) exposure to COVID-19; E88.89 Other specified metabolic disorders; E87.6 Hypokalemia; E53.8 Deficiency of other specified B group vitamins
CPT/HCPCS: 36415; 80048; 80053; 80076; 80307; 83690; 87635; 93005; 96361; 96365; 96375; 99285; 70470; 74177; 76705; 81003; 81015; 82150; 82247; 82248; 82607; 83735; 85025; 85610; 93010; 99219; 99225; 99231; 99232; 99233; 99239; G0378; J0780; J1790; J2060; J2405; J2765; J3010; J3490

== ENCOUNTER 2021-01-26 13:59 | Emergency (ER) | payer BC, SELFPAY ==
--- OUTSIDE RECORDS SUMMARY | 2021-01-26 14:05 | XMS_ITS | Encounter Summary ---
:1995 Author Care Team Providers Name Role Phone Domingo Hedrick Primary Care Provider [phone] Reason for Visit None recorded. Assessment and Plan 1. Nausea and vomiting 01/22/2021: Trial sertraline 25 mg 1 tab daily for anxiety. Anticipate GI consult at [facility] on 01/27/21. Have give return to work note for 2020. Request no mandatory overtime due to medical condition. Follow-up as scheduled 02/16/2021. Call sooner if problem. 01/15/2021: Pt thinks may be due to stre ss. We called GI at [facility]. [facility] has not received referral. Will repeat GI referral. B12 deficiency. Continue B12 1000 mcg 1 tab daily. Check serum B12 and folate 1 week before 1 mon th follow-up. Return to work note for 01/21/2021. Reque st no mandatory overtime due to medical condition. 12/31/2020: Reviewed ER note 12/31. Charlene ent seen with c/o N&V. Please do f/u call. Has nausea and vomit ing improved? Multiple abnormal labs. Blood glucose high at 166. 4+ ketones. Question new Dx diabetes. I called lab, ordered add on A1c hgb, am ylase and lipase. Recommend return to ER if worsening symp toms. Mr. Cantu may need CT abd/pelvis. Otherwise need to move up f/u from 01/12. Request appt with me next week. 2. Anxiety 01/22/2021: Given contact info local counselors. Trial sertraline 25 mg qd. f/u 02/16/2021. Call sooner if problem. 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 He does admit to anxiety. Previous trial citalopram after his partner, the mother of his 4-year-old daughter with a seco nd daughter in childbirth in 2019. She was 30 years old, rupture of placenta and patient and the baby due to hemorrhage. Citalopram made me feel empty so I stopped taking it. Offered trial of alternate low-dose SSRI such as sertraline 25 mg one half tab daily. Explained this may help with his GI symptoms. He defers trial SSRI at this time. Have encouraged him to call us if h e changes his mind otherwise follow-up 1 month for the cyclic vomiting and B12 deficiency. ? sertraline 25 mg tablet Discussion Note: None recorded.Patient educational handouts: No information available. Plan of Care Reminders Provider Appointments Follow up 02/16/2021 Mika roach [place], 40 8:20AM [place] Lab None ? ? recorded. Referral None ? ? recorded. Procedures None ? ? recorded. Surgeries None ? ? recorded. Imaging None ? ? recorded. Medications Name Start Date ? ? promethazine 25 mg tablet ? 1 (one) Tablet: every 6 hours as needed Reglan 10 mg tablet ? Take 1 tablet 3 times a day by oral route. sertraline 25 mg tablet ? Take 1 tablet every day by oral route for 30 days. Anxiety. Take 1/2 tab daily for 3 to 7 days. Then i ncrease to 1 tab daily. Vitamin B12 ? 1,000 mcg capsule daily per ER visit Notes: Pt states he takes no nick e meds 12/31/2020 except zofran and peptobismal Medications Administered None recorded. Vitals Weight Blood Pressure 155 lbs 8 oz 110/70 mm[Hg] Results Lab Results None recorded. Allergies Code Code System Name Reaction Severity Onset NKDA ? ? ? Problems Name Status Onset Date Source ? Mild Major Depression, Single Episode Active 12/18/2017 ? Gilbert's Syndrome Active 02/04/2018 ? Nausea and Vomiting Active 02/12/2018 ? Hyperglycemia Active 12/31/2020 ? Vitamin B12 Deficiency (Non Anemic) Active 01/15/2021 ? Anxiety Active 01/15/2021 ? Adult Health Examination Active ? History Procedures Date Name Performed by ? 11/29/2002 Appendectomy Information not avai lable Notes: Laparoscopic Vaccine List Vaccine Type COVID-19 vaccine, vector-nr, rS-Ad26, PF , 0.5 mL 06/01/2020 DTaP 1993 1993 1993 06/21/1994 12/23/1997 Hep B, adolescent or pediatric 1993 1993 1993 Hib (HbOC) 1993 1993 1993 04/09/1994 IPV 1993 1993 1993 06/21/1994 12/23/1997 meningococcal MCV4P 06/05/2009?0.5 mL MMR 04/19/1994 12/23/1997 Tdap 10/30/2006 varicella 10/30/2006 06/05/2009?0.5 mL Social History Tobacco Smoking Status Never Smoker Any signs of neglect or no signs of neglect or abuse abuse? noted Are you currently employed? 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 [employer]. Increas ed stress x 18 mo with Covid-19 pandemic, increased overtime.Work schedu le 6 am-2 pm, -Mon. Has been doing 20-24 hrs OT/week Have you used IV drugs? N What is your code status? 0 Suspected/Known Abuse Or No Neglect? How much tobacco do you chew? none What was the date of your 01/15/2021 most recent tobacco screening? Do you have an advanced N directive? Do you feel safe at home? Y What is your level of alcohol None consumption? Live alone or with others? with others Notes: : Dtr's mother d. 2019, age 30. Pt became a single [facility]. Dtr was age 18 mo. Now 2 y.o.Pt and his partner were but co-par enting. Partner and dtr in child . Her p lacenta ruptured and it wasn 't even 2 minutes after that .Pt's mother helps with ch ild care. Did the fall result in an N injury? Language Difficulties No Hard of hearing or deaf in N one or both ears? What is your level of Occasional Notes: 3 a week caffeine consumption? 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 Family History Relation Problem Onset Age of Age Notes Paternal Grandfather Malignant tumor of (No N/A ( No Notes) colon Information) Mother Depressive disorder (No N/A (No Note s) Information) Functional Status Unknown. Past Encounters 01/22/2021 Nausea and Vomiting; Anxiety FRANCY Vazquez: [address] [place] [address], Ph. 01/15/2021 Nausea and Vomiting; Vitamin B12 Deficie ncy (Non Anemic); Anxiety FRANCY Vazquez: [address] [place] [address], Ph. History of Present Illness ? Vomiting Reported By: Patient HPI:: Quality: ; Patient reports s ymptoms today were not too bad, Halloween and yesterday were pretty ro ugh. Severity: moderate; Range can be moderate to severe will have episodes of vomitting every 4-5 hours. Context: no recent travel, n on-smoker, no drug/alcohol abuse, no drug alcohol withdrawal, well ruthy er. Alleviating Factors: prescription medication. Aggravating Fact ors: ; Sometimes no matter what he eats will trigger a vomiting episode. Associated Symptoms: no fever, no chills, no frequent coughing, no heartb urn, abdominal pain; will have frequent belching at times Note: <div>01/22/2021: continued issues with N/V </div><div>Did he get in contact with GI. Appointment with GI is on 01/27/21 in [facility].</div><div>"I'd like to try that medicine you mentioned for anxiety."</div><div>
</div><div>Do RTW note 02/04/2021. Request no mandatory overtime due to medical condition.< /div><div>
</div> Review of Systems ? Comprehensive General Adult ROS Reported By: Patient Constitutional: Constitutional: no fever, no significant weight gain, no significant weight loss, no exercise intolerance, no chills, no malaise ENMT: Nose: no frequent nosebleeds . Mouth/Throat: no oral abnormalities, no teeth prob lems Cardiovascular: Cardiovascular: no chest erica n, no arm pain on exertion, no shortness of breath when wal twin, no shortness of breath when lying down, no palpitations, no known heart murmur, no ankle swelling Respiratory: Respiratory: no cough, no wh eezing, no shortness of breath Gastrointestinal: Gastrointestinal: no abdomin al pain, no constipation, normal appetite, no diarrhea, nause a, vomiting Musculoskeletal: Musculoskeletal: no muscle a ches, no arthralgias/joint pain, no back pain, no neck pain Neurologic: Neurologic: no weakness, no numbness, no seizures, no dizziness, no headaches, no tremor, no gait dysfunction Psychiatric: Psych: no depression, no sle ep disturbances, no suicidal thoughts, no mood swings, no agitation, anxiety Endocrine: Endocrine: no fatigue Hematologic/Lymphatic: Hematologic/Lymphatic no swo llen glands, no bruising, no excessive bleeding Physical Exam ? Notes: <div>General: Well-developed , well-nourished adult man in no apparent distress
HEENT: Sclera an d conjunctiva anicteric
Neck: Supple, ROM full. No lymphadenopathy, no JVD, no thyromegaly. Carotid pulses 2+, no bruit.
Chest: No deformit y. LCTA. No rales, no rhonchi, no wheeze. S1-S2. RRR. No murmur.
Abdomen: Normal contour. Normal bowel sounds. Soft, nontender. No HSM.
Neuro: CN II to XII intact. No focal deficit. Motor 5/5. Sensation intact light touch .
Lymphatics: No lymphadenopathy
Psych: Normal affect. Good eye cont act. Answers questions appropriately. Shows good insight.</div>
--- OUTSIDE RECORDS SUMMARY | 2021-01-26 14:05 | XMS_ITS | Continuity of Care Document ---
:1995 Author Organization [facility] S Phone Unavailable Care Team Providers Name Role Phone Ella Temple MD Admitting Physician Latonia Temple MD Attending Physician PCPNF Primary Care Physician Unavailable Insurance Providers Guarantor Wai Veronica Address [address] [place] [address] Email [email or web address] Standard Policy Number [id number] Subscriber's Name Wai Veronica Relationship Self / Same As Patient Group Number 1 Group Name [facility] Advance Directives Directive Response Recorded Date/Time Does the Patient have an Advance Directive? No 07/26/18 1:36am Chief Complaint and Reason for Visit Chief Complaint GASTRITIS N/V Reason for Visit Intractable nausea and vomit ing Acute gastritis Problems Medical Problem Onset Date Status Gastritis Unknown Intractable nausea and vomiting Unknown Acute Hematemesis Unknown Acute gastritis Unknown Acute Medications Current Home Medications Medication Dose Units Route Directions Days Qty Instructio ns Start Date Promethazine Hcl 25 Mg Oral Every 8 Hours 15 Tablet 07/27/18 (Phenergan) 25 Mg as needed for Tab Nausea Social History Social History Problem Response Recorded Date/Time Onset Date Status Hx Tobacco Use No 07/26/2018 9:15am Not Applicable Not Ap plicable Smoking Status Start Date Stop Date Never Smoker Hospital Discharge Instructions Patient Instructions Physician Instructions Discharge Follow Up: Fm/Pt to Make Appointment - Your base clinic as needed Additional Activity Limitation: as tolerated Diet Instruction: Regular Nursing Instructions Discharge Transportation: Private Automobile Belongings Sent Home with Patient: Yes Smoking Cessation Education Provided: Non-Smoker Additional Discharge Information: Follow up with base physician Pt/Family/Caregiver Received Discharge Home Medication List: Yes Prescription(s) Given: Yes Discharge Care Plan #1 Problem: Poor Food or Fluid Intake Plan of Care Discharge Date 07/27/18 11:15am Disposition HOME, SELF-CARE 01 Instructions/Education Provided Promethazine Nausea and Vomiting, Adult ( DC) Forms Provided Antimicrobial Stewardship General Discharge Instructio ns Prescription Opioid Safety Prescriptions See Medication Section Functional Status Query Response Date Recorded Onset Within the Last 7 Days No Problem Identified July 26 1:36am Allergies, Adverse Reactions, Alerts Allergen Type Severity Reaction Status Last Updated NO KNOWN ALLERGY Allergy Unknown Active 07/25/18 Immunizations Query Response on File Recorded Date/Time HX of Pneumococcal Vaccine Unknown 07/25/18 1:37 pm HX of Influenza Vaccine Unknown 07/25/18 1:37pm Tetanus Status Less Than 5 Years 07/25/18 2:45pm Vital Signs Acute Vital Signs Vital Response Date/Time Temperature (Fahrenheit) 98.8 degrees F (97.6 - 99.5) 2018 8:00am Pulse Rate (adult) 67 bpm (60 - 100) 07/27/2018 8:00am Pulse Rate 69 bpm 07/25/2018 11:09pm Respiratory Rate 18 breaths per minute (12 - 24) 07/28/19 8:00am Respiratory Rate 17 breaths per minute 07/25/2018 11:09pm Blood Pressure Systolic 134 mm Hg (100 - 140) 07/27/2018 8:0 0am Blood Pressure Systolic 138 mm Hg 07/25/2018 11:09 pm Blood Pressure Diastolic 66 mm Hg (60 - 90) 07/27/2018 8:00 am Blood Pressure Diastolic 53 mm Hg 07/25/2018 11:0 9pm Height 5 ft 8 in 07/26/2018 1:36am Weight 160 lb 07/26/2018 1:36am Body Mass Index 24.3 kg/m^2 07/26/2018 1:36am Results Laboratory Results Test Name Result Units Flags Reference Collection Result Comments Date/Time Date/Time Mean Platelet 10.4 fL 9.2-12.2 07/25/2018 07/25/2018 Volume 3:35pm 3:49pm Immature 0.30 % 0.0-0.43 07/25/2018 07/25/2018 Granulocyte % 3:35pm 3:49pm (Auto) Immature 0.0300 thou/uL 0.0-0.0310 07/25/2018 07/25/2018 Granulocyte # 3:35pm 3:49pm (Auto) Lymphocytes # 0.8 10*3/uL L 1.2-4.0 07/25/2018 07/25/2018 (Auto) 3:35pm 3:49pm Monocytes # (Auto) 0.4 10*3/uL 0.1-0.8 07/25/2018 07/25/2018 3:35pm 3:49pm Eosinophils # 0.0 10*3/uL 0.0-0.6 07/25/2018 07/25/2018 (Auto) 3:35pm 3:49pm Basophils # (Auto) 0.0 10*3/uL 0.0-0.3 07/25/2018 07/25/2018 3:35pm 3:49pm Nucleated Red 0.000 thou/uL 0-0.012 07/25/2018 07/25/2018 Blood Cells # 3:35pm 3:49pm Peripheral Blood Performed 07/25/2018 07/25/2018 Smear 3:35pm 4:27pm Prothrombin Time 12.4 sec 10.2-12.9 07/25/2018 07/25/2018 3:35pm 3:55pm Prothromb Time 1.1 INR 0.9-1.1 07/25/2018 07/25/2018 International 3:35pm 3:55pm Ratio Urine Color Yellow Yellow 07/25/2018 07/25/2018 4:10pm 4:58pm Urine Appearance CLEAR Clear 07/25/2018 07/25/2018 4:10pm 4:58pm Urine pH 7.0 pH 5.0-8.0 07/25/2018 07/25/2018 4:10pm 4:58pm Urine Specific 1.010 1.005-1.03 07/25/2018 07/25/2018 [place] 0 4:10pm 4:58pm Urine Protein Negative mg/dL Negative 07/25/2018 07/25/2018 4:10pm 4:58pm Urine Glucose (UA) Negative mg/dL Negative 07/25/2018 07/26/19 4:10pm 4:58pm Urine Ketones Moderate mg/dL H Negative 07/25/2018 07/25/2018 4:10pm 4:58pm Urine Occult Blood Negative Negative 07/25/2018 05/08/20 19 4:10pm 4:58pm Urine Nitrite Negative Negative 07/25/2018 07/25/2018 4:10pm 4:58pm Urine Bilirubin Negative Negative 07/25/2018 07/25/2018 4:10pm 4:58pm Urine Urobilinogen Normal mg/dL Normal 07/25/2018 07/25/2018 4:10pm 4:58pm Urine Leukocyte Negative Negative 07/25/2018 07/25/2018 Esterase 4:10pm 4:58pm Urine RBC 0-2 /HPF 0-2 07/25/2018 07/25/2018 4:10pm 5:00pm Urine WBC Rare /HPF 0-2 07/25/2018 07/25/2018 4:10pm 5:00pm Urine Squamous None /LPF 0 - 1+ 07/25/2018 07/25/2018 Epithelial Cells 4:10pm 5:00pm Urine Bacteria None /HPF 0-+/- 07/25/2018 07/25/2018 4:10pm 5:00pm Urine Culture No, 07/25/2018 07/25/2018 Indicated Criteria 4:10pm 5:00pm Not Met Anion Gap 9.0 mmol/L 3.0-11.0 07/25/2018 07/25/2018 3:35pm 4:21pm Amylase Level 48 U/L 25-115 07/25/2018 07/25/2018 3:35pm 4:21pm Lipase 134 U/L 73-393 07/25/2018 07/25/2018 3:35pm 4:21pm Mean Blood Glucose 104 mg/dL 07/25/2018 07/25/2018 3:35pm 4:10pm Hemoglobin A1c 5.7 % 4.2-6.3 07/25/2018 07/25/2018 Ran ges for Hemoglobin A1C in diabetic patients: 3:35pm 4:10pm Hemoglobin A1C Degree of glucose control <7.0% Well-controlled >8.0% Poorly-controlled Degrees of gluco se control based on goals set by the [place] [employer]. Free Thyroxine 1.37 ng/dL 0.76-1.46 07/25/2018 07/25/2018 3:35pm 6:30pm Thyroid 0.240 uIU/mL L 0.358-3.74 07/25/2018 07/25/2018 Stimulating 3:35pm 4:21pm Hormone (TSH) Urine Amphetamines Negative Negative 07/25/2018 07/26/19 Cut-off Screen 4:10pm 5:20pm value for Amphetamine, Urine is 1000 ng/mL. Urine Barbiturates Negative Negative 07/25/2018 07/26/19 19 Cut-off Screen 4:10pm 5:20pm value for Barbiturates , Urine is 200 ng/mL. Urine Negative Negative 07/25/2018 07/25/2018 Cut-off Benzodiazepines 4:10pm 5:20pm value fo r Screen Benzodiazepi ne, Urine is 200 ng/mL. Urine Cocaine Negative Negative 07/25/2018 07/25/2018 Cu t-off Screen 4:10pm 5:20pm value for Cocaine, Urine is 300 ng/mL. Urine Methadone, Negative Negative 07/25/2018 07/25/2018 Cut-off Qualitative 4:10pm 5:20pm value for Methadone, Urine is 300 ng/mL. Urine Opiates Negative Negative 07/25/2018 07/25/2018 Cu t-off Screen 4:10pm 5:20pm value for Opiates, Urine is 300 ng/mL. Urine Negative Negative 07/25/2018 07/25/2018 Cut-off Phencyclidine 4:10pm 5:20pm value for Screen Phencyclidin e, Urine is 25 ng/mL. Urine Cannabinoids Negative Negative 07/25/2018 07/26/19 19 Cut-off 4:10pm 5:20pm value for Cannabinoids , Urine is 50 ng/mL. Urine pH 7.0 5.0-8.0 07/25/2018 07/25/2018 4:10pm 5:20pm White Blood Count 7.6 10*3/uL 4.6-10.2 07/27/2018 07/27/2018 5:40am 6:13am Red Blood Count 4.81 10*6/uL 4.7-6.1 07/27/2018 07/27/2018 5:40am 6:13am Hemoglobin 15.2 g/dL 14.0-18.0 07/27/2018 07/27/2018 5:40am 6:13am Hematocrit 43.9 % 42.0-52.0 07/27/2018 07/27/2018 5:40am 6:13am Mean Corpuscular 91.3 fL 80-97 07/27/2018 07/27/2018 Volume 5:40am 6:13am Mean Corpuscular 31.6 pg H 27.0-31.2 07/27/2018 07/27/2018 Hemoglobin 5:40am 6:13am Mean Corpuscular 34.6 g/dL 31.8-35.4 07/27/2018 07/27/2018 Hemoglobin Concent 5:40am 6:13am Red Cell 11.4 % L 12.5-18.0 07/27/2018 07/27/2018 Distribution Width 5:40am 6:13am Platelet Count 244 10*3/uL 142-424 07/27/2018 07/27/2018 5:40am 6:13am Neutrophils (%) 58.3 % 37-80 07/27/2018 07/27/2018 (Auto) 5:40am 6:13am Lymphocytes (%) 29.0 % 25-40 07/27/2018 07/27/2018 (Auto) 5:40am 6:13am Monocytes (%) 8.6 % 1-15 07/27/2018 07/27/2018 (Auto) 5:40am 6:13am Eosinophils (%) 3.3 % H 1-3 07/27/2018 07/27/2018 (Auto) 5:40am 6:13am Basophils (%) 0.5 % 0-3 07/27/2018 07/27/2018 (Auto) 5:40am 6:13am Nucleated Red 0.0 % 07/27/2018 07/27/2018 Blood Cells % 5:40am 6:13am Neutrophils # 4.40 10*3/uL 1.8-7.7 07/27/2018 07/27/2018 (Auto) 5:40am 6:13am Sodium Level 139 mmol/L 135-145 07/27/2018 07/27/2018 5:40am 6:41am Potassium Level 3.5 mmol/L L 3.6-5.2 07/27/2018 07/27/2018 5:40am 6:41am Chloride Level 104 mmol/L 100-108 07/27/2018 07/27/2018 5:40am 6:41am Carbon Dioxide 27 mmol/L 21-32 07/27/2018 07/27/2018 Level 5:40am 6:41am Blood Urea 8 mg/dL 7-18 07/27/2018 07/27/2018 Nitrogen 5:40am 6:41am Creatinine 1.24 mg/dL 0.70-1.30 07/27/2018 07/27/2018 5:40am 6:41am Estimat Glomerular > 60 >60 07/27/2018 07/27/2018 DESCRIPTION GLOMERULAR FILTRATION RATE Filtration Rate 5:40am 6:41am NORMAL >60 KID ENMA DISEASE 15-60 KID ENMA FAILURE <15 BUN/Creatinine 6.45 Ratio L 7-18 07/27/2018 07/27/2018 Ratio 5:40am 6:41am Glucose Level 92 mg/dL 70-110 07/27/2018 07/27/2018 5:40am 6:41am Calcium Level 8.8 mg/dL 8.8-10.5 07/27/2018 07/27/2018 5:40am 6:41am Total Bilirubin 2.6 mg/dL H 0.0-1.0 07/27/2018 07/27/2018 5:40am 6:41am Aspartate Amino 13 U/L L 15-37 07/27/2018 07/27/2018 Transf (AST/SGOT) 5:40am 6:41am Alanine 18 U/L 12-78 07/27/2018 07/27/2018 Aminotransferase 5:40am 6:41am (ALT/SGPT) Total Protein 6.7 g/dL 6.4-8.2 07/27/2018 07/27/2018 5:40am 6:41am Albumin 3.6 g/dL 3.4-5.0 07/27/2018 07/27/2018 5:40am 6:41am Globulin 3.1 g/dL 2.3-3.5 07/27/2018 07/27/2018 5:40am 6:41am Albumin/Globulin 1.161 Ratio 1.1-1.8 07/27/2018 07/27/2018 Ratio 5:40am 6:41am Alkaline 59 U/L 46-116 07/27/2018 07/27/2018 Phosphatase 5:40am 6:41am Procedures Procedure Status Date Provider(s) ECG (electrocardiogram) Active 07/25/18 MONTSE HUSTON MD Acute abdomen x-ray series with x-ray of Completed 9 MONTSE DUNN MD chest, single view Computed tomography of abdomen and Completed 07/25/18 MONTSE DUNN MD pelvis without contrast Encounters Encounter Location Arrival/Admit Date Discharge/Depart Date Attending Provider Discharged HEMA Downey 07/26/18 1:30am 07/27/18 11:15am ELLA TEMPLE Inpatient (obs) [facility] Discharged HEMA Cline 07/25/18 2:18pm 07/26/18 12:27am JAX TREJO, Inpatient (obs) Domingo Coronel MD [facility] Recent Diagnosis Intractable nausea and vomiting Acute gastritis
--- OUTSIDE RECORDS SUMMARY | 2021-01-26 14:05 | XMS_ITS | Encounter Summary ---
:1995 Author Care Team Providers Name Role Phone Domingo Hedrick Primary Care Provider [phone] Reason for Visit None recorded. Assessment and Plan 1. Nausea and vomiting 01/15/2021: Pt thinks may be d ue to stress. We called GI at [facility]. [facility] has not received referral. Will repeat GI referral. B12 deficiency. Continue B12 1000 mcg 1 tab pravin ly. Check serum B12 and folate 1 week be fore 1 month follow-up. Return to work note for 01/21/2021. [...] 01/12. Request appt with me next week. ? 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 Admit [facility] 01/04?01/10/2021 for intractable nausea and vomiting. Question nonspecific colitis on CT abdomen and pelvis. Nuclear medicine gastric emptying study performed 01/13/2021 at [facility]. We do not have report at this time. Hx intermittent nausea and vomiting going back to at least 2018. Patient adm its that anxiety can be a trigger but he defers trial of SSRI at this time. Thank you for your help with this patient. Domingo Hedrick PA-C 2. Vitamin B12 deficiency (non a nemic) 01/15/2021: Continue B-12 1,00 0 mcg, 1 tab PO qd. Check serum B-12 and folate 1 week before 1 mo f/u. ? folate, serum - Check labs 1 week before f/u in Jan 2021. ? vitamin B12, serum - Check labs 1 week before f/u in Jan 2021. 3. 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 He does admit to anxiety. Previous trial citalopram his partner, the mother of his 4-year-old daughter with a second daughter in childbirth in 2019. She was [...] for the cyclic vomiting and B12 deficiency. Discussion Note: None recorded.Patient educational handouts: No information available. Plan of Care Reminders Provider Appointments Follow up 40 FRANCY Rosales 02/16/2021 8:20AM Lab Folate, Serum [facility] 01/15/2021 Hospital Lab (In [facility]) ? Vitamin B12, Serum [facility] 01/15/2021 Hospital Lab (In [facility]) Referral [employer] [facility] Referral 01/15/2021 Gastroenterology Procedures None recorded. ? ? Surgeries None recorded. ? ? Imaging None recorded. ? ? Medications Name Start Date ? ? promethazine [...] Administered None recorded. Vitals Weight Blood Pressure 165 lbs 14.4 oz 117/80 mm[Hg] Results Lab Results None recorded. Allergies [...] Are you currently employed? 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. Increas ed stress x 18 mo with Covid-19 pandemic, increased overtime.Work formerly [employer] 6 am-2 pm, -Mon. Has been doing [...] 2019, age 28. Pt became a single fath er. Dtr was age 18 mo. Now 2 y.o.Pt and his partner were but co-par enting. Partner and dtr in child . Her p lacenta ruptured and it wasn 't even 2 minutes after that .Pt's mother helps with ild care. Did the fall result in an N injury? Language Difficulties No Hard of hearing or deaf in N one or both ears? What is your level of Occasional Notes: 3 a week caffeine consumption? 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 Family History Relation Problem Onset Age of Age Notes Paternal Grandfather Malignant tumor of (No N/A ( No Notes) colon Information) Mother Depressive disorder (No N/A (No Note s) Information) Functional Status Unknown. Past Encounters 01/15/2021 Nausea and Vomiting; Vitamin B12 Deficie ncy (Non Anemic); Anxiety FRANCY Vazquez: [address] [place] [phone], Ph. History of Present Illness Note: <div>01/13/21: Establish Care. Follow up 2 ER visits and a hospitalization Intractable nausea/vomiting.</div><div>Patient states that he is waiting on a referral from [facility] to gastroenterology. Patient states that he called [facility] on Monday and still has not heard [facility] gastro or from [facility]. Patient reports that nausea and vomiting has subsided now he is trying to get his appetite back. [facility] recommended that he eat small meals every 3 hours which patient has been following. < /div><div>
</div><div>Provider note: Admit [facility] 01/04-01/10/2021 for intractable N/V. Reviewed discharge summary.</div><div>Discharge Dx: </div><div>1. Intractable vomiting with nausea, resolved</div><div>2. Gastroparesis suspected</div><div>3. Gilbert disease, acute</div><div>4. Hypokalemia, resolved</div><div>5. B12 deficiency, acute</div><div>6. COVID-19 ruled out by laboratory testing</div><div>
</div><div>NM gastric emptying study performed on Mon01/13/2021 at [facility]. "I haven't gotten the results yet."</div><div&gt ;
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 [facility] [facility] [employer]. Increased stress x 18 mo with Covid-19 pandemic, increased overtime.</div><div>Workschedule 6 am-2 pm, -Mon. Has been doing 20-24 hrs OT/week.</div><div>Do return to work note for 01/21/2021. No mandatory OT. </div><div>
</div><div>Dtr's mother d. 2018, age 30. Pt became a single father. Dtr was age 18 mo. Now 2 y.o.</div><div>Pt and his partner were but co-parenting. Partner and dtr in child ."Her placenta ruptured and it wasn't even 2 minutes after that."</div><div>Trial citalopram 2019. "Made me feel empty. patient d/c."</div> Review of Systems ? Comprehensive General Adult ROS Reported By: Patient Constitutional: Constitutional: no fever, no significant weight loss, no exercise intolerance, no chi lls, no malaise, weight gain (10lbs); +10 lb X 05/25/2017 Eyes: Eyes: no vision change ENMT: Ears: no difficulty hearing. Nose: no frequent nosebleeds. Mouth/Throat: no oral abnorm alities, no teeth problems Cardiovascular: Cardiovascular: no chest erica n, no arm pain on exertion, no shortness of breath when wal twin, no shortness of breath when lying down, no palpitations, no known heart murmur, no ankle swelling Respiratory: Respiratory: no cough, no wh eezing, no shortness of breath Gastrointestinal: Gastrointestinal: no abdomin al pain, no constipation, normal appetite, no diarrhea, nause a, vomiting Genitourinary: Genitourinary: no difficulty urinating, no hematuria, no increased frequency Musculoskeletal: Musculoskeletal: no muscle a ches, no arthralgias/joint pain, no back pain, no neck pain Integumentary: Skin: no abnormal mole, no r ashes Neurologic: Neurologic: no weakness, no numbness, no seizures, no dizziness, no headaches, no tremor, no gait dysfunction Psychiatric: Psych: no depression, no sle ep disturbances, no suicidal thoughts, no mood swings, no agitation, anxiety Endocrine: Endocrine: no fatigue Hematologic/Lymphatic: Hematologic/Lymphatic no swo llen glands, no bruising, no excessive bleeding Allergic/Immunologic: Allergy/Immunologic: no runn y nose Physical Exam ? Notes: <div>General: Well-developed , [...]
[2021-01-26 14:06] VITALS: BP 145/83; PULSE 91; RESP 18; TEMP 36.7; O2SAT 98
--- NOTE | 2021-01-26 14:30 | ED.GENADUL_ITS ---
Discharge Plan Disposition Patient Disposition: HOME Condition: Stable Discharge Details Clinical Impression: Abdominal pain, Nausea & vomiting Primary Care Provider: Domingo Hedrick ED Provider: Emelyn Dow Home Meds and New Rx's Prescriptions: Continued metoclopramide HCl 10 mg Tablet 10 mg PO AC & HS Qty: 120 RF: 0 Sore Throat (phenol) 1.4 % Aerosol,Uehling 180 ml mucous membrane QID PRN PRNQty: 0 RF: 0 pantoprazole [Protonix] 40 mg tablet,delayed release (DR/EC) 40 mg PO DAILY Qty: 30 RF: 0 sucralfate [Carafate] 1 gram tablet 1 g PO QACHS Qty: 120 RF: 0 cyanocobalamin (vitamin B-12) 1,000 mcg capsule 1,000 mcg PO DAILY Qty: 30 RF: 0 sertraline 25 mg tablet 25 mg PO DAILY RF: 0 multivitamin Capsule 1 cap PO DAILY RF: 0 Discharge Instructions Instructions: Acute Nausea and Vomiting (ED), Abdominal Pain (ED) Additional Instructions: Potassium was slightly low, replenished here in the ER. Laboratory otherwise do not reveal any obvious emergent process. He responded well to the IV fluids and antiemetics. At this time using shared decision-making, plan is to discharge to home with your current medication regimen that she may make your outpatient GI appointment tomorrow. Follow-up with GI as scheduled tomorrow. Please watch for new or worsening symptoms and return to the ER for any concerns. Referrals: Domingo Hedrick [Primary Care Provider] - Discharge Data Discharge Date/Time-TO BE ENTERED AT DEPARTURE: 01/26/21 22:32 Medical Decision Making <FRANCY Smith - Last Filed: 01/27/21 16:50> 26-year-old gentleman with acute on chronic abdominal pain, nausea, vomiting, recently admitted to our facility for the same, scheduled to be seen by his GI specialist for the first time tomorrow. Reports symptoms have returned over the past few days. Is taking his prescription medications with little relief. Patient is dry heaving but otherwise appears well, nontoxic, nonacute abdominal examination. Patient had a CT of his abdomen pelvis during his most recent admission to our facility. Plan is to obtain IV access, obtain routine laboratory values, and give IV Zofran and a liter of IV fluid. Patient given a liter of IV fluid and IV Zofran. He is no longer dry heaving but reports that his nausea still persistent. Will now give a liter of lactated Ringer's and 25 IV Phenergan. White blood cell count 10.32 hemoglobin 16.0 hematocrit 45.3 platelet count 311. Sodium 141 potassium 3.3. Patient will be p.o. challenged and given crackers as well as 40 p.o. potassium. Anion gap elevated at 13.4 but he is receiving a liter of lactated Ringer's as well as normal saline, creatinine 1.3 with a GFR greater than 60. Glucose 99 calcium 9.0 magnesium 2.0. Total bili elevated at 1.9 but given his Gilbert's disease, always elevated. Examination is not consistent with acute cholecystitis. Lipase 145 Patient is scheduled to see GI tomorrow. The hope is he will respond well to the antiemetics given here in the ER and if so will be discharged home so he may make his appointment tomorrow. Patient does not respond well than he may need to be admitted for intractable vomiting as he was last week. Given his recent hospitalization, imaging, I do not believe that repeat emergent imaging is necessary today. Medical Records Medical records reviewed: Yes I reviewed the patient's medical records. Lab Data Lab results reviewed: Yes I reviewed the patient's lab results. Labs: Laboratory Tests Range/Units 01/26/21 01/26/21 14:37 14:37 WBC (4.4-10.8) 10^3/uL 10.32 RBC (4.36-5.78) 10^6/uL 5.13 Hgb (13.5-17.5) g/dL 16.0 Hct (40.0-50.0) % 45.3 MCV (80-95) fL 88.3 MCH (27.0-33.0) pg 31.2 MCHC (32.0-36.0) % 35.3 RDW (11.8-14.1) % 11.7 L Plt Count (130-400) 10^3/uL 311 MPV (8.0-11.0) fL 10.2 Immature Gran % 0.4 Neutrophils % 80.8 Lymphocytes % 10.5 Monocytes % 7.8 Eosinophils % 0.2 Basophils % 0.3 Nucleated RBC % % 0 Absolute Neutrophils (1.2-6.7) 10^3/uL 8.34 H Absolute Lymphocytes (1.2-3.4) 10^3/uL 1.08 L Absolute Monocytes (0.1-0.8) 10^3/uL 0.81 H Absolute Eosinophils (0.0-0.7) 10^3/uL 0.02 Absolute Basophils (0.0-0.2) 10^3/uL 0.03 Sodium Cancelled Potassium Cancelled Chloride Cancelled Carbon Dioxide Cancelled Anion Gap Cancelled BUN Cancelled Creatinine Cancelled Estimated GFR/1.73 m2 Cancelled Glucose Cancelled Calcium Cancelled Magnesium Cancelled Total Bilirubin Cancelled AST Cancelled ALT Cancelled Alkaline Phosphatase Cancelled Total Protein Cancelled Albumin Cancelled Lipase Cancelled <Emelyn Dow NP - Last Filed: 01/27/21 15:31> care of patient received, continues to have nausea and vomited x1, states he feels anxious - will give benadryl 25 mg iVP and ativan 0.5 mg IVP with no significant improvement NS at 250 ml/hr started. still vomiting, given droperidol 2.5 mg IVP patient symptoms improved after droperidol and he is stable for discharge to home. Medical Records Medical records reviewed: Yes I reviewed the patient's medical records. Lab Data Lab results reviewed: Yes I reviewed the patient's lab results. Labs: Laboratory Tests Range/Units 01/26/21 01/26/21 01/26/21 14:37 14:37 15:03 WBC (4.4-10.8) 10^3/uL 10.32 RBC (4.36-5.78) 10^6/uL 5.13 Hgb (13.5-17.5) g/dL 16.0 Hct (40.0-50.0) % 45.3 MCV (80-95) fL 88.3 MCH (27.0-33.0) pg 31.2 MCHC (32.0-36.0) % 35.3 RDW (11.8-14.1) % 11.7 L Plt Count (130-400) 10^3/uL 311 MPV (8.0-11.0) fL 10.2 Immature Gran % 0.4 Neutrophils % 80.8 Lymphocytes % 10.5 Monocytes % 7.8 Eosinophils % 0.2 Basophils % 0.3 Nucleated RBC % % 0 Absolute Neutrophils (1.2-6.7) 10^3/uL 8.34 H Absolute Lymphocytes (1.2-3.4) 10^3/uL 1.08 L Absolute Monocytes (0.1-0.8) 10^3/uL 0.81 H Absolute Eosinophils (0.0-0.7) 10^3/uL 0.02 Absolute Basophils (0.0-0.2) 10^3/uL 0.03 Sodium Cancelled 141 Potassium Cancelled 3.3 L Chloride Cancelled 102 Carbon Dioxide Cancelled 25.6 Anion Gap Cancelled 13.4 H BUN Cancelled 10 Creatinine Cancelled 1.3 Estimated GFR/1.73 m2 Cancelled >= 60.00 Glucose Cancelled 99 Calcium Cancelled 9.0 Magnesium Cancelled 2.0 Total Bilirubin Cancelled 1.9 H AST Cancelled 14 L ALT Cancelled 16 Alkaline Phosphatase Cancelled 59 Total Protein Cancelled 7.6 Albumin Cancelled 4.2 Lipase Cancelled 145 HPI <FRANCY Smith - Last Filed: 01/27/21 16:50> General Mode of arrival: ambulatory . Date/Time Provider Initiated Documentation: 01/26/21 14:00 . Limitations to Documentation: no limitations . Information obtained by: patient . HPI Narrative: This is a 26-year-old gentleman, past medical history that includes Gilbert disease, B12 deficiency, gastroparesis, intractable vomiting and nausea, weight loss between 20-30 pounds over the past month or so, presenting to the ER for acute on chronic intermittent epigastric discomfort, nausea, vomiting. Patient states the symptoms began again a couple of days ago, has been followed by his primary care provider, and has taken his Reglan as directed without resolution of his symptoms. Patient states that he began with GI symptoms back in 2012 but things have worsened significantly over the recent history, specifically of the last month. Reports epigastric pain, mild to moderate worse with vomiting. Denies recent travel or bad food exposure. Denies fever, chest pain, shortness of breath, diarrhea, constipation, dysuria or hematuria. Denies radiation of his abdominal pain anywhere. He is scheduled to be seen by his GI specialist tomorrow for the first time. Related Data Home Medications Medication Instructions Recorded Confirmed Sore Throat (phenol) 180 ml MUCOUS MEMBRANE QID PRN PRN 01/10/21 01/26/21 #0 ml cyanocobalamin (vitamin B-12) 1,000 mcg PO DAILY #30 cap 01/10/21 metoclopramide HCl 10 mg PO AC & HS #120 tab 01/10/21 01/26/21 pantoprazole [Protonix] 40 mg PO DAILY #30 tab 01/10/21 01/26/21 sucralfate [Carafate] 1 g PO QACHS #120 tab 01/10/21 01/26/21 multivitamin 1 cap PO DAILY 01/26/21 01/26/21 sertraline 25 mg PO DAILY 01/26/21 01/26/21 Previous Rx's Medication Instructions Recorded Sore Throat (phenol) 180 ml MUCOUS MEMBRANE QID PRN PRN 01/10/21 #0 ml cyanocobalamin (vitamin B-12) 1,000 mcg PO DAILY #30 cap 01/10/21 metoclopramide HCl 10 mg PO AC & HS #120 tab 01/10/21 pantoprazole [Protonix] 40 mg PO DAILY #30 tab 01/10/21 sucralfate [Carafate] 1 g PO QACHS #120 tab 01/10/21 Allergies Allergy/AdvReac Type Severity Reaction Status Date / Time No Known Allergies Allergy Unverified 01/26/21 14:15 General Stated Complaint: Nausea/Vomit/Diar JAMAL: 3 Review of Systems <FRANCY Smith - Last Filed: 01/27/21 16:50> Constitutional Constitutional: Denies fatigue and Denies fever(s) ENT Ears, Nose, Mouth, and Throat: Denies neck pain Cardiovascular Cardiovascular: Denies chest pain and Denies dyspnea Respiratory Respiratory: Denies cough and Denies dyspnea Gastrointestinal Gastrointestinal: Reports abdominal pain, Denies constipation, Denies diarrhea, Reports nausea and Reports vomiting Genitourinary Genitourinary: Denies hematuria and Denies dysuria Musculoskeletal Musculoskeletal: Denies back pain and Denies neck pain Integumentary/Breasts Skin/Breast: Denies rash Neurologic Neurologic: Reports weakness (Generalized) Endocrine Endocrine: Denies fatigue PFSH <FRANCY Smith - Last Filed: 01/27/21 16:50> Social History Smoking/Tobacco Use Status: Never Smoking risk assessment performed?: Yes Alcohol Intake: never Drug use: Never Substance use type: does not use Do you feel safe at home: Yes Do you feel safe in your relationship?: Yes Exam <FRANCY Smith - Last Filed: 01/27/21 16:50> Const General: cooperative, no acute distress and other (Dry heaving) Orientation: alert, awake and oriented x3 HENMT Head: normal to inspection, normocephalic and atraumatic Mouth: moist mucous membranes abnormal (Dry) Eyes General: appearance normal, both eyes and all related structures Conjunctivae: conjunctivae normal Neck Neck: normal visual inspection, full ROM, no meningeal signs, trachea midline and supple Resp Effort & Inspection: normal respiratory effort and able to speak in complete sentences Auscultation: clear to auscultation bilaterally Cardio Rate: regular rate Rhythm: regular rhythm GI Inspection: normal to inspection Palpation: soft, not firm, no guarding, no pulsatile masses and tender in the epigastrum; with no rebound tenderness Auscultation: normal bowel sounds Back/Spine/Pelvis Back: No back tenderness Skin General skin exam: no rashes or lesions noted Neuro General: patient alert, patient awake, moves all extremities and no focal motor deficits Cognition: normal cognition Speech: speech normal Sensory Exam: no sensory deficits noted Psych Appearance: grossly normal Mental Status: mental status grossly normal Course <FRANCY Smith - Last Filed: 01/27/21 16:50> Vital Signs Vital signs: Vital Signs Temperature 36.7 C 01/26/21 14:06 Pulse 91 H 01/26/21 14:06 Respiratory Rate 18 01/26/21 14:06 Blood Pressure 145/83 H 01/26/21 14:06 Pulse Oximetry 98 01/26/21 14:06 Temperature 36.7 C 01/26/21 14:06 Temperature Source Oral 01/26/21 14:06 Pulse 91 H 01/26/21 14:06 Respiratory Rate 18 01/26/21 14:06 Respiratory Effort Non-Labored 01/26/21 14:14 Blood Pressure 145/83 H 01/26/21 14:06 Blood Pressure Position Supine 01/26/21 14:06 Pulse Oximetry 98 01/26/21 14:06 Oxygen Delivery Method Room Air 01/26/21 14:06 Oxygen Flow Rate 0 01/26/21 14:06 Pain Level 7 01/26/21 14:06 Sign Out <FRANCY Smith - Last Filed: 01/27/21 16:50> Sign Out Data: Sign Out Comment: Acute on chronic abdominal pain, nausea, vomiting. Recent admission to our facility, negative abdominal and pelvis CT at that time. Scheduled to be seen by GI tomorrow. Patient will need to be p.o. challenged. If tolerates well can be discharged with GI follow-up tomorrow as already scheduled Last updated by Jitendra Lim PA at 01/26/21 16:09
[2021-01-26] MEDS: Ondansetron 4 MG/2 ML VIAL IVP (14:32)
[2021-01-26] MEDS: Normal Saline 1,000 ML 1000 ML IV (14:35)
[2021-01-26 14:45] LABS: Abs Immature Grans 0.04 10^3/uL (0.0-0.06); Absolute Basophil Count 0.03 10^3/uL (0.0-0.2); Absolute Eosinophil Count 0.02 10^3/uL (0.0-0.7); Absolute Lymphocyte Count 1.08 10^3/uL (1.2-3.4); Absolute Monocyte Count 0.81 10^3/uL (0.1-0.8); Absolute Neutrophil Count 8.34 10^3/uL (1.2-6.7); Basophils % 0.3; Eosinophils % 0.2; HCT 45.3 % (40.0-50.0); Immature Grans % 0.4; Lymphocytes % 10.5; MCH 31.2 pg (27.0-33.0); MCHC 35.3 % (32.0-36.0); MCV 88.3 fL (80-95); MPV 10.2 fL (8.0-11.0); Monocytes % 7.8; Neutrophils % 80.8; Nucleated RBC 0 %; Platelet Count 311 10^3/uL (130-400); RBC 5.13 10^6/uL (4.36-5.78); RDW 11.7 % (11.8-14.1); RDW-SD 37.6 fL; WBC 10.32 10^3/uL (4.4-10.8)
[2021-01-26] MEDS: Lactated Ringers 1,000 ML 1000 ML IV (15:35)
[2021-01-26 15:46] LABS: BUN 10 mg/dL (7-18); CREATININE 1.3 mg/dL (0.70-1.30); Glucose 99 mg/dL (74-106); Total Protein 7.6 g/dL (6.4-8.2)
[2021-01-26 15:47] LABS: Albumin 4.2 g/dL (3.4-5.0); Alkaline Phosphatase 59 U/L (46-116); Anion Gap 13.4 mmol/L (3-11); Bilirubin, Total 1.9 mg/dL (0.2-1.0); CO2 25.6 mmol/L (21.0-32.0); Chloride 102 mmol/L (98-107); Potassium 3.3 mmol/L (3.5-5.1); Sodium 141 mmol/L (136-145)
[2021-01-26 15:48] LABS: ALT 16 U/L (16-63); AST 14 U/L (15-37); Lipase 145 U/L (73-393)
[2021-01-26] MEDS: Potassium Chloride 20 MEQ TABCR 40 MEQ PO (16:49)
[2021-01-26] MEDS: Normal Saline 1,000 ML 250 ML IV (17:45)
[2021-01-26] MEDS: diphenhydrAMINE 50 MG/ML VIAL 25 MG IVP (17:45)
[2021-01-26] MEDS: LORazepam 2 MG/ML VIAL 0.5 MG IVP (17:45)
[2021-01-26 18:12] VITALS: BP 120/74; PULSE 95; TEMP 37.2; O2SAT 93
[2021-01-26] MEDS: Droperidol 5 MG/2 ML VIAL 2.5 MG IVP (19:46)
[2021-01-26 22:23] VITALS: BP 150/71; PULSE 71; RESP 16; O2SAT 97
== END 2021-01-26 22:32 | disposition home or self-care (01) ==
PROVIDERS: Physician Assistant; Emergency Provider Nurse Practitioner Acute Care; PCP Physician Assistant Medical
DX: R10.13 Epigastric pain (principal); R11.2 Nausea with vomiting, unspecified
CPT/HCPCS: 36415; 80053; 83690; 96361; 96365; 96375; 99284; 83735; 85025; 99283; J1200; J1790; J2060; J2405

== ENCOUNTER 2021-01-29 08:12 | Inpatient (IN) | payer BC, SELFPAY ==
[2021-01-29] VITALS (51 sets, daily range): BP systolic 118–153; BP diastolic 61–88; PULSE 71–114; RESP 7–24; TEMP 36.5–36.8; O2SAT 93–100
--- NOTE | 2021-01-29 08:28 | ED.GENADUL_ITS ---
Discharge Plan Disposition Patient Disposition: [facility] INPATIENT Condition: Fair Discharge Details Chief Complaint: Nausea/Vomit/Diar Clinical Impression: Nausea & vomiting, Hypokalemia Admit Date/Time: 01/29/21 13:01 Admit Provider: Bladimir Newby Attending Provider: Bladimir Newby Primary Care Provider: Domingo Hedrick ED Provider: Mine Phillips Discharge Data Discharge Date/Time-TO BE ENTERED AT DEPARTURE: 01/29/21 13:43 Medical Decision Making Wai Cantu is a 26 y/o man with h/o Gilbert disease who presented to the emergency department with nausea and vomiting ongoing for one month, with recent hospitalization and ED visit for same. On exam is well and non-toxic but fatigued appearing. Abdominal exam is benign. Concern for dehydration, electrolyte abnormality, other. Exam/hx at this not c/w with acute emergent intra-abdominal/intracranial process, ACS, acute aortic pathology, UGIB. Plan for IV placement, screening labs, IVF hydration, IV zofran. EKG for QT eval given multiple meds. Pt with improvement after IV zofran. Pt offered admission given recurrent nature of symptoms, Pt states that he prefers to go home and would like to trial PO. Pt with continued vomiting. Plan for repeat IV zofran. Labs reviewed, WBC 7.36, Hgb 14.8, K 3.2. Continued vomiting. Pt requests something for anxiety. Plan for reglan, ativan. Pt accepted plan for admission given recurrent vomiting in ED. Pt admitted to to Dr. Newby, hospitalist. Medical Records Medical records reviewed: Yes I reviewed the patient's medical records. Lab Data Lab results reviewed: Yes I reviewed the patient's lab results. ECG Data Attestation: I personally reviewed and interpreted this ECG (s) as follows: Interpretation: EKG shows sinus rhythm at 90, normal axis, QTC 464, no STEMI, nondiagnostic EKG HPI General Mode of arrival: ambulatory . Date/Time Provider Initiated Documentation: 01/29/21 08:26 . Limitations to Documentation: no limitations . Information obtained by: patient, RN notes reviewed and old records reviewed . HPI Narrative: Wai Cantu is a 26 y/o man with h/o Gilbert disease presenting to the ED for nausea and vomiting. Per Pt and record review, Pt was seen in the ED for same 10/18, underwent abd US and CT abd/pelv, admitted to the hospital for several days for intractable vomiting. Pt was seen again in the ED for n/v 01/26. He was given IVF and zofran, improved in the ED, and was discharged to home. Pt reports that he has had on-going nausea and vomiting for one month, during which he has barely been able to hold down food or liquids. He states that he has lost 30 pounds over the course of the month. Pt reports no prior h/o of similar symptoms. States that after d/c from hospital stay here in December he was referred to GI specialist, and has appt for EGD at [place] next week. Pt reports that multiple home meds inc zofran and reglan have not improved his vomiting at home. He reports anxiety related to on-going vomiting. He reports sore throat that started 2 weeks ago or so and he relates to repeated vomiting, denies any difficulty swallowing. He reports that he has abd pain only when vomiting, denies other abd pain. Denies any other pain, fevers, SOB, cough, diarrhea, constipation, numbness, weakness, rash. Denies etoh use, rec drug use inc marijuana, tobacco/nicotine. Related Data Home Medications Medication Instructions Recorded Confirmed Sore Throat (phenol) 180 ml MUCOUS MEMBRANE QID PRN PRN 01/10/21 01/29/21 #0 ml cyanocobalamin (vitamin B-12) 1,000 mcg PO DAILY #30 cap 01/10/21 01/29/21 metoclopramide HCl 10 mg PO AC & HS #120 tab 01/10/21 01/29/21 pantoprazole [Protonix] 40 mg PO DAILY #30 tab 01/10/21 01/29/21 sucralfate [Carafate] 1 g PO QACHS #120 tab 01/10/21 01/29/21 multivitamin 1 cap PO DAILY 01/26/21 01/29/21 sertraline 25 mg PO DAILY 01/26/21 01/29/21 Previous Rx's Medication Instructions Recorded Sore Throat (phenol) 180 ml MUCOUS MEMBRANE QID PRN PRN 01/10/21 #0 ml cyanocobalamin (vitamin B-12) 1,000 mcg PO DAILY #30 cap 01/10/21 metoclopramide HCl 10 mg PO AC & HS #120 tab 01/10/21 pantoprazole [Protonix] 40 mg PO DAILY #30 tab 01/10/21 sucralfate [Carafate] 1 g PO QACHS #120 tab 01/10/21 Allergies Allergy/AdvReac Type Severity Reaction Status Date / Time No Known Allergies Allergy Unverified 01/29/21 08:27 General Stated Complaint: Nausea/Vomit/Diar JAMAL: 3 Review of Systems Narrative: Constitutional: denies fevers Eyes: denies eye pain ENT: denies ear pain, dental pain, reports sore throat Cardiovascular: denies chest pain Respiratory: denies SOB, cough GI: denies abdominal pain, diarrhea, reports vomiting : denies flank pain MSK: denies back pain, neck pain, arthralgias, myalgias Skin: denies rash Neuro: denies headaches, numbness, weakness PFSH Social History Smoking/Tobacco Use Status: Never Smoking risk assessment performed?: Yes Alcohol Intake: never Drug use: Never Substance use type: does not use Do you feel safe at home: Yes Do you feel safe in your relationship?: Yes Exam Narrative Exam Narrative: Constitutional: well and [id number], appears fatigued, conversing normally HENT: head atraumatic/normocephalic/normal inspection, mucous membranes dry Eyes: conjunctiva normal, sclera normal, pupils 3mm b/l Neck: no stridor, normal ROM, trachea midline Chest: normal inspection Resp: normal work of breathing, speaking in full sentences Cardio: normal rate, normal rhythm GI: abdomen soft, non-tender, non-distended Skin: warm, dry, normal color, no rash Neuro: alert, not altered, grossly non-focal, normal tone Ext: no edema, moving all extremities equally Psych: normal mood, normal affect, normal behavior Course Vital Signs Vital signs: Vital Signs Temperature 36.5 C 01/29/21 08:17 Pulse 77 01/29/21 08:17 Respiratory Rate 14 01/29/21 08:17 Blood Pressure 142/87 H 01/29/21 08:17 Pulse Oximetry 99 01/29/21 08:17 Temperature 36.5 C 01/29/21 08:17 Temperature Source Skin 01/29/21 08:17 Pulse 77 01/29/21 08:17 Respiratory Rate 14 01/29/21 08:17 Respiratory Effort 01/29/21 08:24 Blood Pressure 142/87 H 01/29/21 08:17 Blood Pressure Position Supine 01/29/21 08:17 Pulse Oximetry 99 01/29/21 08:17 Oxygen Delivery Method Room Air 01/29/21 08:17 Oxygen Flow Rate 0 01/29/21 08:17 Pain Level 6 01/29/21 08:17
--- NOTE | 2021-01-29 08:30 | RT.EKG_ITS ---
APPROVED REPORT Exam: Resting ECG Reason for Exam: vomiting, eval QT Patient Location: E HR:90 bpm ECG Measurements Heart Rate 90 AXIS AZ 99 P 79 QRSd 94 QRS 76 QT 379 T 14 QTc 464 Conclusion Sinus rhythm...normal P axis, V-rate 60- 99 sinus rhythm at 90, normal axis, QTC 464, no STEMI, nondiagnostic EKG
[2021-01-29 08:53] LABS: Abs Immature Grans 0.02 10^3/uL (0.0-0.06); Absolute Basophil Count 0.02 10^3/uL (0.0-0.2); Absolute Eosinophil Count 0.02 10^3/uL (0.0-0.7); Absolute Lymphocyte Count 1.01 10^3/uL (1.2-3.4); Absolute Monocyte Count 0.61 10^3/uL (0.1-0.8); Absolute Neutrophil Count 5.68 10^3/uL (1.2-6.7); Basophils % 0.3; Eosinophils % 0.3; HCT 42.3 % (40.0-50.0); HGB 14.8 g/dL (13.5-17.5); Immature Grans % 0.3; Lymphocytes % 13.7; MCH 31.3 pg (27.0-33.0); MCV 89.4 fL (80-95); MPV 10.4 fL (8.0-11.0); Monocytes % 8.3; Neutrophils % 77.1; Nucleated RBC 0 %; Platelet Count 255 10^3/uL (130-400); RBC 4.73 10^6/uL (4.36-5.78); RDW 11.8 % (11.8-14.1); RDW-SD 38.4 fL; WBC 7.36 10^3/uL (4.4-10.8)
[2021-01-29] MEDS: Normal Saline 1,000 ML 1000 ML IV ×2 (08:56→10:59)
[2021-01-29] MEDS: Ondansetron 4 MG/2 ML VIAL IVP ×2 (09:23→12:25)
[2021-01-29 09:41] LABS: Calcium 8.5 mg/dL (8.5-10.1); Glucose 94 mg/dL (74-106)
[2021-01-29 09:42] LABS: ALT 14 U/L (16-63); AST 9 U/L (15-37); Alkaline Phosphatase 50 U/L (46-116); Anion Gap 14.2 mmol/L (3-11); BUN 12 mg/dL (7-18); CO2 22.8 mmol/L (21.0-32.0); CREATININE 1.1 mg/dL (0.70-1.30); Chloride 105 mmol/L (98-107); Lipase 107 U/L (73-393); Potassium 3.2 mmol/L (3.5-5.1); Sodium 142 mmol/L (136-145)
[2021-01-29] MEDS: POTASSIUM CHLORIDE 20 MEQ/100 ML BAG 50 MEQ IVPB ×2 (10:59→13:08)
[2021-01-29] MEDS: Normal Saline Flush 10 ML SYR IVP ×3 (12:26→23:40)
[2021-01-29] MEDS: Metoclopramide 10 MG/2 ML VIAL IVP (13:00)
[2021-01-29] MEDS: LORazepam 2 MG/ML VIAL 1 MG IVP (13:03)
[2021-01-29 13:39] LABS: Source Nasal/Nares
[2021-01-29] MEDS: Scopolamine 1 MG/3 DAYS PATCH TD (14:34)
[2021-01-29] MEDS: Enoxaparin 40 MG/0.4 ML SYR SC (14:34)
[2021-01-29] MEDS: LORazepam 2 MG/ML VIAL 0.5 MG IVP ×2 (15:52→23:40)
[2021-01-29] MEDS: Lactated Ringers 1,000 ML 100 ML IV (15:59)
--- NOTE | 2021-01-29 16:08 | W.PM.HP.N ---
Date of service: 01/29/21 Time of Service: 16:08 Assessment and Plan Assessment and plan (1) Gilbert disease: Status: Acute Assessment and plan: Bilirubin does elevate with emesis. Currently not unusually elevated for this condition. (2) Intractable vomiting with nausea: Status: Resolved Assessment and plan: Etiology is unknown. He denies marijuan use and previous UDS neg. UDS this admission pending. IV fluids. Antiemetics including scopolamine patch. PRN ativan and hot showers. Has endoscopy planned next week with GI in [place]. History of Present Illness History of Present Illness Chief Complaint: Nausea and vomitting. Narrative: This is a 26 yo male with a h/o anxiety and Gilbert disease. He was admitted to [facility] from 01/05/21 to 01/10/21 for intractable N/V. He presented to the ED with the same; N/V that has been appx [id number] since being discharged. He did have an appt with GI in [facility] and they have scheduled him for endoscopy next week. He asks if anxiety could be causing this because he still feels, like he verbalized during the last admission, that he is under significant stress. Antiemetics have not been helpful. He was sent home on reglan and he endorses little benefit. He denies use of marijuana and drug screen at the time of the last admission was negative. He does note that a hot shower helps temporarily with the nausea. Ativan was noted to be helpful previously. He had a negative gastric emptying study on 01/13/21. Lab in the ED showed a K+ of 3.2 and replacement initiated. His total bilirubin was 3.0 and consistent with Gilbert disease. VS unremarkable other than intermittent mild tachycardia. Afebrile. He endorsed unintentional weight loss since last admission. He denied diarrhea, constipation, hematemesis, F/C. Review of Systems All systems reviewed & are unremarkable except as noted in HPI and below PFSH Social History Smoking/Tobacco Use Status: Never Smoking risk assessment performed?: Yes Alcohol Intake: never Drug use: Never Substance use type: does not use Do you feel safe at home: Yes Do you feel safe in your relationship?: Yes Meds Allergies and Home Medications Allergies Allergy/AdvReac Type Severity Reaction Status Date / Time No Known Allergies Allergy Unverified 01/29/21 08:27 Home Medications Medication Instructions Recorded Confirmed Type Sore Throat (phenol) 180 ml MUCOUS MEMBRANE QID PRN PRN 01/10/21 01/29/21 Rx #0 ml cyanocobalamin (vitamin B-12) 1,000 mcg PO DAILY #30 cap 01/10/21 01/29/21 Rx metoclopramide HCl 10 mg PO AC & HS #120 tab 01/10/21 01/29/21 Rx pantoprazole [Protonix] 40 mg PO DAILY #30 tab 01/10/21 01/29/21 Rx sucralfate [Carafate] 1 g PO QACHS #120 tab 01/10/21 01/29/21 Rx multivitamin 1 cap PO DAILY 01/26/21 01/29/21 History sertraline 25 mg PO DAILY 01/26/21 01/29/21 History Exam Narrative Exam Narrative: Fatigued appearing male; WDWN. Ketone odor to breath Const General: cooperative and no acute distress Nutritional Appearance: average body habitus Orientation: alert and oriented x3 HENMT Ears: hearing grossly normal bilaterally Mouth: mucous membranes dry and malodorous breath ketones Eyes Sclera: sclerae normal Pupils: PERRL Resp Effort & Inspection: normal respiratory effort Auscultation: clear to auscultation bilaterally Cardio Rate: regular rate Rhythm: regular rhythm Heart Sounds: S1 normal and S2 normal GI Inspection: normal to inspection and non-distended Palpation: soft and tender (mild, diffuse w/o guarding/rebound) Skin General skin exam: no rashes or lesions noted Extrem General: no pedal edema and no calf tenderness Psych Mental Status: mental status grossly normal Affect: blunted Results Labs Result diagrams: 01/29/21 08:45 01/29/21 09:09 Labs: Laboratory Results - last 24 hr 01/29/21 01/29/21 01/29/21 08:45 08:45 09:09 WBC 7.36 RBC 4.73 Hgb 14.8 Hct 42.3 MCV 89.4 MCH 31.3 MCHC 35.0 RDW 11.8 Plt Count 255 MPV 10.4 Immature Gran % 0.3 Neutrophils % 77.1 Lymphocytes % 13.7 Monocytes % 8.3 Eosinophils % 0.3 Basophils % 0.3 Nucleated RBC % 0 Absolute Neutrophils 5.68 Absolute Lymphocytes 1.01 L Absolute Monocytes 0.61 Absolute Eosinophils 0.02 Absolute Basophils 0.02 Sodium Cancelled 142 Potassium Cancelled 3.2 L Chloride Cancelled 105 Carbon Dioxide Cancelled 22.8 Anion Gap Cancelled 14.2 H BUN Cancelled 12 Creatinine Cancelled 1.1 Estimated GFR/1.73 m2 Cancelled >= 60.00 Glucose Cancelled 94 Calcium Cancelled 8.5 Total Bilirubin Cancelled 3.0 H AST Cancelled 9 L ALT Cancelled 14 L Alkaline Phosphatase Cancelled 50 Total Protein Cancelled 7.0 Albumin Cancelled 4.0 Lipase Cancelled 107 COVID-19 Source 01/29/21 13:35 WBC RBC Hgb Hct MCV MCH MCHC RDW Plt Count MPV Immature Gran % Neutrophils % Lymphocytes % Monocytes % Eosinophils % Basophils % Nucleated RBC % Absolute Neutrophils Absolute Lymphocytes Absolute Monocytes Absolute Eosinophils Absolute Basophils Sodium Potassium Chloride Carbon Dioxide Anion Gap BUN Creatinine Estimated GFR/1.73 m2 Glucose Calcium Total Bilirubin AST ALT Alkaline Phosphatase Total Protein Albumin Lipase COVID-19 Source Nasal/Nares Last Vital Signs Temp 36.8 C 01/29/21 16:03 Pulse 79 01/29/21 16:03 Resp 18 01/29/21 16:03 BP 127/72 01/29/21 16:03 Pulse Ox 100 01/29/21 16:03
[2021-01-29 17:11] LABS: COVID-19 PCR Negative (Negative)
[2021-01-30 00:10] VITALS: BP 138/88; PULSE 85; RESP 18; TEMP 36.8; O2SAT 99
[2021-01-30 01:01] LABS: *AMPHETAMINES SCREEN URINE Negative (Negative); *BARBITURATES SCREEN URINE Negative (Negative); *BENZODIAZEPINES SCREEN URINE Negative (Negative); Cannabinoids THC Negative (Negative); Cocaine Screen,Urine Negative (Negative); METHADONE URINE SCREEN Negative (Negative); OPIATES URINE SCREEN Negative (Negative); Tricyclic Antidepressants Negative (Negative)
[2021-01-30 01:09] LABS: Bilirubin Small (Negative); Blood Negative (Negative); Clarity Clear (Clear); Glucose Negative (Negative); Ketones 80 mg/dL (Negative); Leukocyte Esterase Negative (Negative); Nitrite Negative (Negative); Specific Gravity >= 1.030 (1.005-1.025); Urobilinogen 0.2 EU/dL (Up TO 0.2)
[2021-01-30] MEDS: Lactated Ringers 1,000 ML 100 ML IV ×2 (04:10→16:50)
[2021-01-30] MEDS: LORazepam 2 MG/ML VIAL 0.5 MG IVP (07:29)
[2021-01-30] MEDS: Normal Saline Flush 10 ML SYR IVP (07:30)
[2021-01-30 07:33] VITALS: BP 132/86; PULSE 69; RESP 17; TEMP 36.8; O2SAT 100
[2021-01-30 07:59] LABS: BUN 6 mg/dL (7-18); Calcium 8.6 mg/dL (8.5-10.1); Glucose 86 mg/dL (74-106); Total Protein 6.4 g/dL (6.4-8.2)
[2021-01-30 08:00] LABS: ALT 11 U/L (16-63); AST 8 U/L (15-37); Albumin 3.5 g/dL (3.4-5.0); Alkaline Phosphatase 46 U/L (46-116); Anion Gap 10.7 mmol/L (3-11); Bilirubin, Total 3.5 mg/dL (0.2-1.0); CO2 24.3 mmol/L (21.0-32.0); Chloride 105 mmol/L (98-107); Magnesium 2.2 mg/dL (1.8-2.4); Potassium 3.8 mmol/L (3.5-5.1); Sodium 140 mmol/L (136-145)
--- NOTE | 2021-01-30 11:04 | INITIAL_ITS ---
- If Service Date Differs Date of service: 01/30/21 Time of Service: 11:04 Care Management Initial Assess REASON FOR HOSPITALIZATION:: Gilbert Disease - intractable vomiting PAST MEDICAL HISTORY/PAST SURGICAL HISTORY:: All systems reviewed & are unremarkable except as noted in HPI and below PREVIOUS FUNCTIONAL STATUS/SOCIAL/FAMILY SUPPORTS:: Wai resides in [place], [place] with his girlfriend Sarita Miranda and his 4 year old daughter Courtney. He works at the [employer] in [place] and is independent at baseline. CURRENT FUNCTIONAL STATUS:: Wai was lying in bed complaining of severe nausea when CM met with him. His girlfriend Sarita was present and was able to help answer some questions. Sarita stated that Wai began to get sick again about a week after discharge and he has not been well for more than a short time since then. He has seen his PCP and the only new medication ordered is Sertraline. ADVANCE DIRECTIVES:: none on file Has patient been provided with info about the portal/API?: Yes Did the patient sign up for the portal?: No CODE STATUS:: Full Code INSURANCE COVERAGE / FINANCIAL ISSUES:: BS CURRENT HOME/COMMUNITY SERVICES/EQUIPMENT:: none PRIMARY CARE PHYSICIAN:: Domingo Hedrick POTENTIAL DISCHARGE NEEDS:: follow up with PCP and plan of care PATIENT/FAMILY EDUCATION NEEDS:: review of discharge instructions, activity, limitations, diet, medications, Discuss Ask Me Three TRANSPORTATION:: via private vehicle with friends/family PLAN:: Bladimir will return home with no new services. He will follow up with his PCP and plan of care as prescribed. He will transport via private vehicle with his girlfriend Sairta. CM will support patient and discharge needs based on assessments. Readmission - Within the Past 30 Days Yes or No: Y - Date of First Admission Date of 1st Admission: 01/06/21 - Date of this Admission Date of Admission: 01/29/21 This admission was: Through ED - Office Visit Since 1st Admission Have you seen your PCP in the office since discharge?: Yes - I. Interview patient and/or Family Difficulty reaching your doctor or getting an office appt?: No Have you had trouble purchasing/ or taking medication?: No Have you had trouble with getting meals at home?: No Did you feel ready for discharge when you left the last time: Yes Did you call your physician beore you came to the ED?: No - Ask the Care Team Members: What do you think caused the patient to be readmitted: Patient has developed protracted nausea and vomiting for over a month- cause unknown. He has had 2 inpatient hospitalizations and a third ED visit with no clear etiology identified. Wai has seen GI in [place] and is scheduled for an EGD next week.. - ED visits How many ED visits in the past 12 months: 3 - Assessment for Readmission Summary of readmission circumstances, based upon interviews: Wai has an appointment for an EGD in [place] next week. He has had ongoing nausea and vomiting for over a month, cause undetermined as yet.
--- NOTE | 2021-01-30 14:15 | PGE_ITS ---
Date of Service Date of service: 01/30/21 Time of Service: 14:15 Assessment and Plan Assessment and plan (1) Intractable vomiting with nausea: Start date: 01/30/21 Start time: 14:36 Status: Acute Assessment and plan: Etiology is unknown. UDS negative. States ongoing since last admission with 30 lb wt loss. Reglan has not been helpful. Gastric emptying negative study IV fluids. NPO except Ice chips Hot shower prn, capsaician to abd Antiemetics including scopolamine patch, compazine,. PRN ativan, start on wellbutrin, stop zolofot and add buspar for depression and anxiety. Has endoscopy planned this up coming week with GI in [place]. Will consult surgery to see if they will do one here (2) Gilbert disease: Start date: 01/30/21 Start time: 14:26 Status: Chronic Assessment and plan: Bilirubin does elevate with emesis. Currently not unusually elevated for this condition. (3) Hypokalemia: Start date: 01/30/21 Start time: 14:40 Status: Resolved Assessment and plan: K today 3.8 on admission was low continue to monitor (4) DVT prophylaxis: Start date: 01/30/21 Start time: 14:40 Status: Acute Assessment and plan: chemical prophylaxis not indicated in a 26 y.o male (5) Discharge planning issues: Start date: 01/30/21 Start time: 14:41 Status: Acute Assessment and plan: home when medically stable Subjective Subjective Patient reports: vomiting Interval history since last seen: Still continues to have nausea and vomiting. He is currently receiving phenergan, he states he continues to feel anxiety. Started on zoloft a week ago. He would likely benefit more from wellbutrin given its effects on anxiety and depression with buspar in addition until full effects of wellbutrin kick in. Will start on wellbutrin and d/c zoloft. Given he is only on 25 mg and it has only been a week low threshold for side effect. He continues to fell sick will add zofran and compazine for antiemetics. Hot showers are sometimes helpful will add order for showers and capsaician cream as well. One time dose diazepam for anxiety IM due to nausea. Will make compazine IM for now until able to tolerate oral. NPO except Ice chips. Patient was suppose to have EGD, in setting of 30 lb wt loss and ongong nausea, surgery consulted. Exam Narrative Exam Narrative: Fatigued appearing male; Const General: cooperative and ill appearing chronically Nutritional Appearance: average body habitus Orientation: alert, awake and oriented x3 HENMT Head: normal to inspection, no palpable skull fracture, normocephalic and atraumatic Ears: hearing grossly normal bilaterally Mouth: mucous membranes dry Eyes Sclera: sclerae normal Pupils: PERRL Neck Neck: full ROM and no lymphadenopathy Lymphatic: no lymphadenopathy noted Chest Chest: normal inspection of the chest Resp Effort & Inspection: normal respiratory effort Auscultation: clear to auscultation bilaterally Cardio Jugular venous pressure: no JVD Rate: regular rate Rhythm: regular rhythm Heart Sounds: S1 normal and S2 normal GI Inspection: normal to inspection and non-distended Palpation: soft and tender (mild, diffuse w/o guarding/rebound) Skin General skin exam: no rashes or lesions noted Extrem General: no pedal edema and no calf tenderness Psych Mental Status: mental status grossly normal Affect: blunted Objective Last Vital Signs Temp 36.8 C 01/30/21 07:33 Pulse 69 01/30/21 07:33 Resp 17 01/30/21 07:33 BP 132/86 01/30/21 07:33 Pulse Ox 100 01/30/21 07:33 Laboratory Results - last 24 hr 01/29/21 01/29/21 01/29/21 13:30 13:30 13:35 Sodium Potassium Chloride Carbon Dioxide Anion Gap BUN Creatinine Estimated GFR/1.73 m2 Glucose Calcium Magnesium Total Bilirubin AST ALT Alkaline Phosphatase Total Protein Albumin Urine Color Cancelled Urine Clarity Cancelled Urine pH Cancelled Ur Specific Jenkins Cancelled Urine Protein Cancelled Urine Ketones Cancelled Urine Blood Cancelled Urine Nitrite Cancelled Urine Bilirubin Cancelled Urine Urobilinogen Cancelled Ur Leukocyte Esterase Cancelled Urine Glucose Cancelled Urine Opiates Screen Cancelled Urine Methadone Screen Cancelled Ur Barbiturates Screen Cancelled Ur Tricyclics Screen Cancelled Ur Amphetamines Screen Cancelled U Benzodiazepines Scrn Cancelled Urine Cocaine Screen Cancelled Ur THC Screen Cancelled SARS-CoV-2 (PCR) Negative 01/30/21 01/30/21 01/30/21 00:25 00:25 07:00 Sodium 140 Potassium 3.8 Chloride 105 Carbon Dioxide 24.3 Anion Gap 10.7 BUN 6 L Creatinine 1.0 Estimated GFR/1.73 m2 >= 60.00 Glucose 86 Calcium 8.6 Magnesium 2.2 Total Bilirubin 3.5 H AST 8 L ALT 11 L Alkaline Phosphatase 46 Total Protein 6.4 Albumin 3.5 Urine Color Yellow Urine Clarity Clear Urine pH 6.0 Ur Specific Jenkins >= 1.030 H Urine Protein Negative Urine Ketones 80 H Urine Blood Negative Urine Nitrite Negative Urine Bilirubin Small H Urine Urobilinogen 0.2 Ur Leukocyte Esterase Negative Urine Glucose Negative Urine Opiates Screen Negative Urine Methadone Screen Negative Ur Barbiturates Screen Negative Ur Tricyclics Screen Negative Ur Amphetamines Screen Negative U Benzodiazepines Scrn Negative Urine Cocaine Screen Negative Ur THC Screen Negative SARS-CoV-2 (PCR)
[2021-01-30] MEDS: buPROPion-XL 150 MG TABCR PO (14:22)
[2021-01-30] MEDS: busPIRone 5 MG TAB 10 MG PO ×2 (14:22→20:48)
[2021-01-30] MEDS: diazePAM 10 MG/2 ML SYR 5 MG IM (14:23)
--- NOTE | 2021-01-30 15:40 | W.SURGCON ---
Date of service: 01/30/21 Time of Service: 15:40 Assessment and Plan Assessment and plan (1) Intractable vomiting with nausea: Status: Acute Assessment and plan: -No indication for emergent EGD, imaging/work up has been negative for acute pathologies -Recommend formal psychiatric evaluation for symptoms related to severe anxiety/depression as I believe this is the primary issue here -Do not feel nausea and vomiting is related to a mechanical problem, EGD would not likely provide further helpful diagnostic information at this time -Check for H. pylori antibodies in blood specimen -Send stool samples when able for culture/ova/parasites/calprotectin if this has not already been done -Also recommend trial of Marinol to help improve appetite and decrease nausea History of Present Illness Narrative: 26 year old male with intractable nausea and vomiting for the last 2 months associated with a 30lb weight loss. Patient has a history of gilbert's but has otherwise been healthy up until this point and denies and history of recreational or medicinal drug use. He is apparently scheduled for an EGD on Monday as every other diagnostic test he has undergone has been negative. He was recently started on Sertraline, but has not noticed any improvement or worsening of symptoms. Patient reports significant increases in social stressors just prior to the onset of his nausea and vomiting. 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 He has been unable to be present for his child, who just started school, due to work constraints. Internet Merchant at the bedside reports they initially assumed he had severe social anxiety as these episodes of vomiting occurred more frequently in public at restaurants or at parties with friends. The only relief he gets is during a hot bath or shower. He denies any family history of chronic illness, has not recently traveled or been exposed to anyone with similar symptoms. He had an appendectomy at age 8. Reports siblings are all in usual state of health without any medical problems. Denies fever/chills, reports epigastric pain immediately after episodes of emesis, but otherwise has no pain. Consults Consult date: 01/30/21 Requesting physician: Fara Alicea Review of Systems Constitutional Constitutional: Reports as per HPI, Denies chills, Denies fever(s), Reports malaise, Reports poor appetite, Reports weakness and Reports weight loss ENT Ears, Nose, Mouth, and Throat: Denies dizziness, Denies odynophagia and Reports sore throat (from vomiting) Cardiovascular Cardiovascular: Denies chest pain, Denies syncope, Denies rapid heart rate and Denies dyspnea Respiratory Respiratory: Denies cough and Denies dyspnea Gastrointestinal Gastrointestinal: Reports abdominal pain (epigastric immediately after emesis), Denies belching, Denies bloating, Denies constipation, Denies cramping, Denies heartburn, Denies diarrhea, Denies loose stools, Reports nausea, Denies odynophagia, Reports vomiting and Denies hematemesis Neurologic Neurologic: Denies behavioral changes, Denies confusion, Denies dizziness, Denies syncope and Reports weakness Psychiatric Psychiatric: Reports anxiety, Denies behavioral changes, Denies confusion, Reports depression and Reports panic attacks [facility] Social History Smoking/Tobacco Use Status: Never Smoking risk assessment performed?: Yes Alcohol Intake: never Drug use: Never Substance use type: does not use Do you feel safe at home: Yes Do you feel safe in your relationship?: Yes Exam Const General: cooperative, no acute distress, ill appearing and lethargic Eyes Eyelids: eyelids normal Conjunctivae: conjunctivae normal Sclera: sclerae normal EOM: EOM intact bilaterally Resp Effort & Inspection: no audible wheezes, no cough and no respiratory distress GI Inspection: normal to inspection and non-distended Palpation: soft, not firm, no guarding and nontender Percussion: normal to percussion Results Last Vital Signs Temp 98.2 F 01/30/21 07:33 Pulse 69 01/30/21 07:33 Resp 17 01/30/21 07:33 BP 132/86 01/30/21 07:33 Pulse Ox 100 01/30/21 07:33 Labs Result diagrams: 01/29/21 08:45 01/30/21 07:00 Labs: Laboratory Results - last 24 hr 01/29/21 01/29/21 01/29/21 13:30 13:30 13:35 Sodium Potassium Chloride Carbon Dioxide Anion Gap BUN Creatinine Estimated GFR/1.73 m2 Glucose Calcium Magnesium Total Bilirubin AST ALT Alkaline Phosphatase Total Protein Albumin Urine Color Cancelled Urine Clarity Cancelled Urine pH Cancelled Ur Specific Colona Cancelled Urine Protein Cancelled Urine Ketones Cancelled Urine Blood Cancelled Urine Nitrite Cancelled Urine Bilirubin Cancelled Urine Urobilinogen Cancelled Ur Leukocyte Esterase Cancelled Urine Glucose Cancelled Urine Opiates Screen Cancelled Urine Methadone Screen Cancelled Ur Barbiturates Screen Cancelled Ur Tricyclics Screen Cancelled Ur Amphetamines Screen Cancelled U Benzodiazepines Scrn Cancelled Urine Cocaine Screen Cancelled Ur THC Screen Cancelled SARS-CoV-2 (PCR) Negative 01/30/21 01/30/21 01/30/21 00:25 00:25 07:00 Sodium 140 Potassium 3.8 Chloride 105 Carbon Dioxide 24.3 Anion Gap 10.7 BUN 6 L Creatinine 1.0 Estimated GFR/1.73 m2 >= 60.00 Glucose 86 Calcium 8.6 Magnesium 2.2 Total Bilirubin 3.5 H AST 8 L ALT 11 L Alkaline Phosphatase 46 Total Protein 6.4 Albumin 3.5 Urine Color Yellow Urine Clarity Clear Urine pH 6.0 Ur Specific Colona >= 1.030 H Urine Protein Negative Urine Ketones 80 H Urine Blood Negative Urine Nitrite Negative Urine Bilirubin Small H Urine Urobilinogen 0.2 Ur Leukocyte Esterase Negative Urine Glucose Negative Urine Opiates Screen Negative Urine Methadone Screen Negative Ur Barbiturates Screen Negative Ur Tricyclics Screen Negative Ur Amphetamines Screen Negative U Benzodiazepines Scrn Negative Urine Cocaine Screen Negative Ur THC Screen Negative SARS-CoV-2 (PCR)
[2021-01-30 18:12] VITALS: BP 103/60; PULSE 65; RESP 16; TEMP 37.4; O2SAT 98
[2021-01-31] MEDS: Lactated Ringers 1,000 ML 100 ML IV ×2 (02:24→16:06)
[2021-01-31 07:26] LABS: Abs Immature Grans 0.01 10^3/uL (0.0-0.06); Absolute Basophil Count 0.02 10^3/uL (0.0-0.2); Absolute Eosinophil Count 0.11 10^3/uL (0.0-0.7); Absolute Lymphocyte Count 1.71 10^3/uL (1.2-3.4); Absolute Neutrophil Count 3.58 10^3/uL (1.2-6.7); Basophils % 0.3; Eosinophils % 1.8; HCT 39.2 % (40.0-50.0); HGB 13.5 g/dL (13.5-17.5); Immature Grans % 0.2; Lymphocytes % 28.4; MCH 30.8 pg (27.0-33.0); MCHC 34.4 % (32.0-36.0); MCV 89.5 fL (80-95); MPV 10.5 fL (8.0-11.0); Neutrophils % 59.3; Nucleated RBC 0 %; Platelet Count 196 10^3/uL (130-400); RBC 4.38 10^6/uL (4.36-5.78); RDW 11.7 % (11.8-14.1); RDW-SD 38.3 fL; WBC 6.03 10^3/uL (4.4-10.8)
[2021-01-31] MEDS: busPIRone 5 MG TAB 10 MG PO ×3 (07:39→20:09)
[2021-01-31] MEDS: buPROPion-XL 150 MG TABCR PO (07:39)
[2021-01-31] MEDS: Multivitamin TAB 1 TAB PO (07:39)
[2021-01-31 07:49] LABS: BUN 5 mg/dL (7-18); CREATININE 0.9 mg/dL (0.70-1.30); Calcium 8.6 mg/dL (8.5-10.1); Glucose 81 mg/dL (74-106); Total Protein 6.5 g/dL (6.4-8.2)
[2021-01-31 07:50] LABS: ALT 10 U/L (16-63); AST 11 U/L (15-37); Albumin 3.7 g/dL (3.4-5.0); Alkaline Phosphatase 47 U/L (46-116); Anion Gap 11.3 mmol/L (3-11); Bilirubin, Total 4.2 mg/dL (0.2-1.0); CO2 25.7 mmol/L (21.0-32.0); Chloride 102 mmol/L (98-107); Potassium 3.6 mmol/L (3.5-5.1); Sodium 139 mmol/L (136-145)
[2021-01-31 07:58] VITALS: BP 104/64; PULSE 62; RESP 16; TEMP 36.3; O2SAT 99
[2021-01-31] MEDS: LORazepam 2 MG/ML VIAL 1 MG IVP ×2 (10:27→15:56)
[2021-01-31] MEDS: Normal Saline Flush 10 ML SYR IVP ×6 (10:27→20:09)
--- NOTE | 2021-01-31 12:36 | W.PM.PROGNOT ---
Date of Service Date of service: 01/31/21 Time of Service: 12:36 Assessment and Plan Assessment and plan (1) Intractable vomiting with nausea: Start date: 01/31/21 Start time: 12:45 Status: Acute Assessment and plan: Etiology is likely anxiety. Looks better today. Still vomiting vomiting brown emesis no CT this admission thus far will order CT abd stat. No BM in 11 Days . but anxiety is better is with buspar and ativan. he states no triggers. This started on 12/29. Hot shower prn, capsaician to abd Antiemetics including scopolamine patch, compazine,. Feels better with buspar and ativan Surgery does not feel EGD necessary at this time. I agree as I believe this is more anxiety driven He is agreeable to psych consult. (2) Gilbert disease: Start date: 01/31/21 Start time: 12:56 Status: Chronic Assessment and plan: Bilirubin does elevate with emesis. Currently not unusually elevated for this condition. (3) Hypokalemia: Start date: 01/31/21 Start time: 12:58 Status: Resolved Assessment and plan: K today 3.6 on admission was low continue to monitor (4) DVT prophylaxis: Start date: 01/31/21 Start time: 12:58 Status: Acute Assessment and plan: chemical prophylaxis not indicated in a 26 y.o male (5) Discharge planning issues: Start date: 01/31/21 Start time: 12:59 Status: Acute Assessment and plan: home when medically stable Subjective Subjective Patient reports: vomiting Interval history since last seen: Patient severely anxious. He states he felt relaxed this morning then all of a sudden became nauseated and anxious. He states hot showers and ativan help. He also stated he felt better with the buspar. Will consult psychiatry. He is agreeable to this. He stated all his sx started on 12/29. Consulted surgery as he was suppose to have EGD this week. She agrees this is more anxiety drives and does not feel EGD is emergent at this time. Exam Narrative Exam Narrative: Appears better today. Const General: cooperative and ill appearing chronically Nutritional Appearance: average body habitus Orientation: alert, awake and oriented x3 HENMT Head: normal to inspection, no palpable skull fracture, normocephalic and atraumatic Ears: hearing grossly normal bilaterally Mouth: mucous membranes dry Eyes Sclera: sclerae normal Pupils: PERRL Neck Neck: full ROM and no lymphadenopathy Lymphatic: no lymphadenopathy noted Chest Chest: normal inspection of the chest Resp Effort & Inspection: normal respiratory effort Auscultation: clear to auscultation bilaterally Cardio Jugular venous pressure: no JVD Rate: regular rate Rhythm: regular rhythm Heart Sounds: S1 normal and S2 normal GI Inspection: normal to inspection and non-distended Palpation: soft and tender (mild, diffuse w/o guarding/rebound) Skin General skin exam: no rashes or lesions noted Extrem General: no pedal edema and no calf tenderness Psych Mental Status: mental status grossly normal Affect: blunted Objective Last Vital Signs Temp 36.3 C L 01/31/21 07:58 Pulse 62 01/31/21 07:58 Resp 16 01/31/21 07:58 BP 104/64 01/31/21 07:58 Pulse Ox 99 01/31/21 07:58 Laboratory Results - last 24 hr 01/31/21 01/31/21 07:05 07:05 WBC 6.03 RBC 4.38 Hgb 13.5 Hct 39.2 L MCV 89.5 MCH 30.8 MCHC 34.4 RDW 11.7 L Plt Count 196 MPV 10.5 Immature Gran % 0.2 Neutrophils % 59.3 Lymphocytes % 28.4 Monocytes % 10.0 Eosinophils % 1.8 Basophils % 0.3 Nucleated RBC % 0 Absolute Neutrophils 3.58 Absolute Lymphocytes 1.71 Absolute Monocytes 0.60 Absolute Eosinophils 0.11 Absolute Basophils 0.02 Sodium 139 Potassium 3.6 Chloride 102 Carbon Dioxide 25.7 Anion Gap 11.3 H BUN 5 L Creatinine 0.9 Estimated GFR/1.73 m2 >= 60.00 Glucose 81 Calcium 8.6 Total Bilirubin 4.2 H AST 11 L ALT 10 L Alkaline Phosphatase 47 Total Protein 6.5 Albumin 3.7
--- NOTE | 2021-01-31 13:40 | DI.CT_ITS ---
Exam(s) CT ABDOMEN PELVIS W EXAM: CT ABDOMEN PELVIS W CLINICAL HISTORY: hyperemesis TECHNIQUE: Imaging Protocol: Axial computed tomography images with coronal and sagittal reformatted images were created and reviewed CONTRAST MATERIAL: Intravenous: Omnipaque 350 Contrast volume:100 mL Oral: No COMPARISON: CT CT ABDOMEN PELVIS W from 01/04/2021 FINDINGS: The examination is limited due to patient motion artifact. ABDOMEN: Lung Bases: Normal where visualized. Small hiatal hernia. Liver: Normal density. No measurable mass. Portal, Superior Mesenteric, and Splenic Veins: Unremarkable. Gallbladder and Biliary Tract: No radiodense calculus or dilation. Pancreas: Normal density, no abnormal calcifications or inflammatory process. Spleen: Normal. Adrenals: No masses seen. Kidneys: Normal size, contour and axis. No radiodense stones or obstructive uropathy. No masses seen. Abdominal Aorta: Abdominal portion non-dilated. Bowel: No evidence of obstruction. Portions of the ascending transverse and descending colon are not completely distended. This does limit evaluation. No definite pericolonic inflammatory changes are seen. No evidence of appendicitis. Peritoneal Cavity: There is a small amount of free fluid in the pelvis. No free air. Lymph Nodes: Within normal limits. Bones: Within normal limits for the patient's age. There is L5 spondylolysis and grade 1 spondylolis thesis of L5 on S1. Soft Tissues: Unremarkable. PELVIS: Bladder: Symmetric distention, no gross wall thickening. Reproductive Organs: Unremarkable as visualized. Lymph Nodes: Within normal limits. Bones: Within normal limits for the patient's age. IMPRESSION: Underdistention of portions of the colon. This likely accounts for the bowel wall thickening. Colit is cannot be entirely excluded. Please correlate clinically. RADIATION DOSE DELIVERED: 725.63mGy.cm Total DLP DATA REPOSITORY: All CT scans at this facility are submitted to the National Radiology Data Registry (NRDR) Dose Index Registry (DIR) with the [employer] (ACR). RADIATION OPTIMIZATION: All CT scans at this facility use at least one of these dose optimization te chniques: automated exposure control; mA and/or kV adjustment per patient size (includes targeted exa ms where dose is matched to clinical indication); or iterative reconstruction.
[2021-01-31] MEDS: Normal Saline - Diluent 50 ML VIAL IV (13:49)
[2021-01-31] MEDS: Omnipaque 350 MG/ML 100 ML BTL IJ (13:49)
--- NOTE | 2021-01-31 14:13 | DI.VRAD_ITS ---
PROCEDURE INFORMATION: Exam: CT Abdomen And Pelvis With Contrast Exam date and time: 01/31/2021 1:34 PM Age: 26 years old Clinical indication: Other: Hyperemesis TECHNIQUE: Imaging protocol: Computed tomography of the abdomen and pelvis with contrast. Contrast material: OMNIPAQUE 350; Contrast volume: 100 ml; Contrast route: INTRAVENOUS (IV); COMPARISON: CT ABDOMEN PELVIS W 01/04/2021 2:14 PM FINDINGS: Liver: Normal. No mass. Gallbladder and bile ducts: Normal. No calcified stones. No ductal dilation. Pancreas: Normal. No ductal dilation. Spleen: Normal. No splenomegaly. Adrenal glands: Normal. No mass. Kidneys and ureters: Normal. No hydronephrosis. Stomach and bowel: Under distended ascending, transverse and descending colon with mild mucosal thickening noted. Remaining large bowel has mild stool volume without significant mucosal thickening. No dilated loops of small or large bowel. Stomach is under distended . Appendix: Appendix is not visualized. There is suspicion of postsurgical changes in the tip of the cecum. No evidence of abnormal fluid collection in the right lower quadrant. Intraperitoneal space: Unremarkable. No free air. No significant fluid collection. Vasculature: No abdominal aortic aneurysm. Lymph nodes: No enlarged lymph nodes. Urinary bladder: Unremarkable as visualized. Reproductive: Unremarkable as visualized. Bones/joints: Grade 1 anterolisthesis of L5 over S1 with bilateral pars interarticularis defects. Soft tissues: Unremarkable. IMPRESSION: 1. Under distended ascending, transverse and descending colon with mild mucosal thickening which could be due to underdistention versus mild colitis. Correlate clinically. 2. Otherwise no acute abdominal abnormality. Dictated and Authenticated by: Carlton Gonzalez MD. Ordering:DAINA Chaudhari MD
[2021-01-31] MEDS: Pantoprazole 40 MG VIAL 80 MG IVP (14:21)
[2021-01-31 15:39] VITALS: BP 148/95; PULSE 91; RESP 18; TEMP 37.4; O2SAT 99
[2021-01-31] MEDS: Ondansetron 4 MG/2 ML VIAL IVP (15:56)
--- NOTE | 2021-01-31 19:10 | W.PM.PROGNOT ---
Date of Service Date of service: 01/31/21 Time of Service: 16:10 Assessment and Plan Assessment and plan (1) Intractable vomiting with nausea: Status: Acute Assessment and plan: -Significant improvement in symptoms with most recent medication adjustments -Feel that etiology is primarily psychogenic, CT today negative. Could consider possibility of SMA syndrome but gastric emptying study negative and much less likely. -EGD can be done as an outpatient for completeness -Formal psychiatric consult pending, patient is agreeable to this -Will sign off please call with any new questions or concerns (2) Abdominal pain: Status: Acute Assessment and plan: -Resolved Qualifiers: Abdominal location: generalized Qualified Code(s): R10.84 - Generalized abdominal pain (3) Gilbert disease: Status: Chronic Subjective Subjective Patient reports: feels better, no bowel movement, nausea (improved), vomiting (improved only 2x today) and afebrile Interval history since last seen: patient reports hes feeling significantly better today and has only vomited twice, he estimates 30x per day prior to this Exam Const General: cooperative, comfortable and no acute distress Resp Effort & Inspection: normal respiratory effort, no audible wheezes, no cough and no respiratory distress Cardio Rate: regular rate Rhythm: regular rhythm GI Inspection: normal to inspection Palpation: soft, not firm, no guarding and nontender Percussion: normal to percussion Skin General skin exam: no rashes or lesions noted Neuro General: patient alert, patient awake and patient oriented x3 Psych Appearance: grossly normal Mental Status: mental status grossly normal Speech and Movement: speech and movement normal Mood: euthymic mood Affect: blunted Attitude: cooperative Thought Process: normal Thought Content: normal Insight: insight good Objective Last Vital Signs Temp 99.3 F 01/31/21 15:39 Pulse 91 H 01/31/21 15:39 Resp 18 01/31/21 15:39 BP 148/95 H 01/31/21 15:39 Pulse Ox 99 01/31/21 15:39 Laboratory Results - last 24 hr 01/31/21 01/31/21 07:05 07:05 WBC 6.03 RBC 4.38 Hgb 13.5 Hct 39.2 L MCV 89.5 MCH 30.8 MCHC 34.4 RDW 11.7 L Plt Count 196 MPV 10.5 Immature Gran % 0.2 Neutrophils % 59.3 Lymphocytes % 28.4 Monocytes % 10.0 Eosinophils % 1.8 Basophils % 0.3 Nucleated RBC % 0 Absolute Neutrophils 3.58 Absolute Lymphocytes 1.71 Absolute Monocytes 0.60 Absolute Eosinophils 0.11 Absolute Basophils 0.02 Sodium 139 Potassium 3.6 Chloride 102 Carbon Dioxide 25.7 Anion Gap 11.3 H BUN 5 L Creatinine 0.9 Estimated GFR/1.73 m2 >= 60.00 Glucose 81 Calcium 8.6 Total Bilirubin 4.2 H AST 11 L ALT 10 L Alkaline Phosphatase 47 Total Protein 6.5 Albumin 3.7
[2021-01-31] MEDS: Docusate Sodium 100 MG CAP PO (20:09)
[2021-01-31] MEDS: Pantoprazole 40 MG VIAL IVP (20:09)
[2021-01-31 23:34] VITALS: BP 142/85; PULSE 89; RESP 18; TEMP 36.5; O2SAT 99
[2021-02-01] MEDS: Lactated Ringers 1,000 ML 100 ML IV ×2 (03:01→16:12)
[2021-02-01 06:31] VITALS: BP 136/83; PULSE 78; RESP 18; TEMP 35.5; O2SAT 99
[2021-02-01] MEDS: Multivitamin TAB 1 TAB PO (07:40)
[2021-02-01] MEDS: buPROPion-XL 150 MG TABCR PO (07:40)
[2021-02-01] MEDS: busPIRone 5 MG TAB 10 MG PO ×2 (07:40→13:46)
[2021-02-01 07:47] VITALS: BP 144/89; PULSE 90; RESP 19; TEMP 36.3; O2SAT 100
[2021-02-01] MEDS: Normal Saline Flush 10 ML SYR IVP ×3 (09:24→20:30)
[2021-02-01] MEDS: Pantoprazole 40 MG VIAL IVP ×2 (09:24→20:30)
[2021-02-01 11:08] LABS: BUN 6 mg/dL (7-18); Calcium 8.6 mg/dL (8.5-10.1); Glucose 84 mg/dL (74-106)
[2021-02-01 11:09] LABS: Anion Gap 14.7 mmol/L (3-11); CO2 24.3 mmol/L (21.0-32.0); Chloride 99 mmol/L (98-107); Potassium 3.5 mmol/L (3.5-5.1); Sodium 138 mmol/L (136-145)
--- NOTE | 2021-02-01 12:04 | CMPROGNOTE_ITS ---
- If Service Date Differs Date of service: 02/01/21 Time of Service: 12:04 Care Management Progress Note S/O: Wai was laying in bed when CM met with him. He reportedly had a rough morning and C/O increased nausea and vomiting. He reported to CM that he's had similar episodes in the past when his anxiety is bad, however his GI issues would only last few day and he was never this sick. A virtual consult with Dr. Francois was done 3:30pm today. CM to support pts discharge planning needs. A: 26 year old male admitted to [facility] for Gilbert Disease, Intractable vomiting P: Anticipate Bladimir will return home when medically cleared by Tiffanie. He will follow up with his PCP and plan of care as prescribed. He will transport via private vehicle with his girlfriend Sarita. CM will support patient and discharge needs based on assessments.
--- NOTE | 2021-02-01 12:23 | TELEFU_ITS ---
Date of service: 02/01/21 Time of Service: 12:23 Nutrition Note NOTE: Assessment 26yo male admitted with abd pain/vomiting. PMH significant for Gilbert disease, hypokalemia, DVT prophylaxis, intractable n/v. Meds: buproprion, capsaicin cream, iohexol, lactated ringers, lorazepam, MVI, p antoprazole, scopolamine; with PRN acetaminophen, horacio, docusate sodium, MOM, ondansetron, polyethylene glycol. Prochlorperazine, senna. Did not meet with pt today ? sleeping upon visit. Reportedly no vomiting since last evening and had BM yesterday as well per nursing. Current BMI of 23.4kg/m2 is wnl, however Wai has lost 10.4% of his bodyweight in about a month (was 77.1kg on 01/04/21). Noted NPO status for diet order currently. Estimated nutrition needs: 2625kcals (REEx1.6), 55-70g protein (.8-1g/kg), and 2625mL fluid (1mL/kcal). Diagnosis: severe malnutrition in the context of acute illness r/t nausea, vomiting and decreased intake AEB 10.4% wt loss x 1 month. Intervention: Will approach pt regarding high kcal/high protein diet as tolerated once po intake resumes. Will approach about preference for higher kcal/protein supplements as diet advances. Monitoring/evaluation: will monitor weight and intake closely to support Mr Cantu with regaining some lost weight. Will evaluate malnutrition status s/p nutrition interventions. Pancho Paulson NDTR ? [employer] Time Spent in Nutritional Counseling and Treatment: 0
[2021-02-01] MEDS: Scopolamine 1 MG/3 DAYS PATCH TD (13:45)
[2021-02-01] MEDS: Senna TAB 1 TAB PO (13:54)
--- NOTE | 2021-02-01 15:42 | W.PM.PROGNOT ---
Date of Service Date of service: 02/01/21 Time of Service: 14:00 Assessment and Plan Assessment and plan (1) Intractable vomiting with nausea: Start date: 02/01/21 Start time: 14:00 Status: Acute Assessment and plan: Anxiety driven. Psychiatry consulted. Feeling slightly better though he did throw up 200 ml around noon. Add tigan to antiemetics Doesn't feel ativan is really helping, He does feel buspar helps a little. Changed ativan to diazepam Continue to monitor labs LR at 100 as he is NPO still. (2) Gilbert disease: Start date: 02/01/21 Start time: 14:00 Status: Chronic Assessment and plan: Will continue to monitor. Currently not unusually elevated for this condition. (3) Hypokalemia: Start date: 02/01/21 Start time: 14:00 Status: Resolved Assessment and plan: K today 3.5 on admission was low continue to monitor Will give a dose of potassium as he is borderline (4) DVT prophylaxis: Start date: 02/01/21 Start time: 14:00 Status: Acute Assessment and plan: chemical prophylaxis not indicated in a 26 y.o male (5) Discharge planning issues: Start date: 02/01/21 Start time: 14:00 Status: Acute Assessment and plan: home when medically stable Dr. Norman Subjective Subjective Interval history since last seen: States he is feeling slightly better today. Still throwing up, however nause and vomiting less. He does not feel ativan working will trial diazepam. He does feel buspar helps, add tigan to nausea medication regimen and increase zofran. Meeting with psychiatry today. Exam Narrative Exam Narrative: Appears better today. Const General: cooperative and ill appearing chronically Nutritional Appearance: average body habitus Orientation: alert, awake and oriented x3 [facility] Head: normal to inspection, no palpable skull fracture, normocephalic and atraumatic Ears: hearing grossly normal bilaterally Mouth: mucous membranes dry Eyes Sclera: sclerae normal Pupils: PERRL Neck Neck: full ROM and no lymphadenopathy Lymphatic: no lymphadenopathy noted Chest Chest: normal inspection of the chest Resp Effort & Inspection: normal respiratory effort Auscultation: clear to auscultation bilaterally Cardio Jugular venous pressure: no JVD Rate: regular rate Rhythm: regular rhythm Heart Sounds: S1 normal and S2 normal GI Inspection: normal to inspection and non-distended Palpation: soft and tender (mild, diffuse w/o guarding/rebound) Skin General skin exam: no rashes or lesions noted Extrem General: no pedal edema and no calf tenderness Psych Mental Status: mental status grossly normal Affect: blunted Objective Last Vital Signs Temp 36.3 C L 02/01/21 07:47 Pulse 90 02/01/21 07:47 Resp 19 02/01/21 07:47 BP 144/89 H 02/01/21 07:47 Pulse Ox 100 02/01/21 07:47 Laboratory Results - last 24 hr 02/01/21 02/01/21 10:22 10:22 Sodium 138 Potassium 3.5 Chloride 99 Carbon Dioxide 24.3 Anion Gap 14.7 H BUN 6 L Creatinine 1.0 Estimated GFR/1.73 m2 >= 60.00 Glucose 84 Calcium 8.6 Magnesium 2.0
[2021-02-01 15:56] VITALS: BP 146/87; PULSE 90; RESP 18; TEMP 36.5; O2SAT 100
[2021-02-01] MEDS: Potassium Chloride Liquid 20 MEQ PKT 40 MEQ PO (16:16)
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
[2021-02-01] MEDS: Ondansetron 4 MG/2 ML VIAL 8 MG IVP (20:30)
[2021-02-01] MEDS: cloNIDine 0.1 MG TAB PO (20:30)
[2021-02-01] MEDS: busPIRone 5 MG TAB 20 MG PO (20:30)
[2021-02-01 23:20] VITALS: BP 113/74; PULSE 71; RESP 18; TEMP 36.5; O2SAT 97
[2021-02-02 07:27] VITALS: BP 105/62; PULSE 64; RESP 17; TEMP 36.5; O2SAT 98
[2021-02-02] MEDS: busPIRone 5 MG TAB 20 MG PO (07:45)
[2021-02-02] MEDS: buPROPion-XL 150 MG TABCR PO (07:45)
[2021-02-02] MEDS: Multivitamin TAB 1 TAB PO (07:45)
[2021-02-02] MEDS: cloNIDine 0.1 MG TAB PO (07:45)
[2021-02-02] MEDS: Lactated Ringers 1,000 ML 100 ML IV (07:45)
[2021-02-02] MEDS: Normal Saline Flush 10 ML SYR IVP (09:25)
[2021-02-02] MEDS: Pantoprazole 40 MG VIAL IVP (09:25)
[2021-02-02 09:28] LABS: ALT 24 U/L (16-63); AST 20 U/L (15-37); Albumin 3.5 g/dL (3.4-5.0); Alkaline Phosphatase 44 U/L (46-116); Bilirubin, Direct 0.3 mg/dL (0.0-0.2); Bilirubin, Total 2.9 mg/dL (0.2-1.0); Total Protein 6.1 g/dL (6.4-8.2)
[2021-02-02 09:29] LABS: BUN 6 mg/dL (7-18); CREATININE 0.9 mg/dL (0.70-1.30); Calcium 8.6 mg/dL (8.5-10.1); Chloride 103 mmol/L (98-107); Glucose 84 mg/dL (74-106); Magnesium 2.1 mg/dL (1.8-2.4); Potassium 3.6 mmol/L (3.5-5.1); Sodium 140 mmol/L (136-145)
[2021-02-02 09:49] LABS: Absolute Basophil Count 0.03 10^3/uL (0.0-0.2); Absolute Eosinophil Count 0.12 10^3/uL (0.0-0.7); Absolute Lymphocyte Count 1.34 10^3/uL (1.2-3.4); Absolute Monocyte Count 0.59 10^3/uL (0.1-0.8); Absolute Neutrophil Count 3.49 10^3/uL (1.2-6.7); Basophils % 0.5; Eosinophils % 2.2; HCT 37.2 % (40.0-50.0); MCH 31.1 pg (27.0-33.0); MCHC 34.9 % (32.0-36.0); MPV 10.6 fL (8.0-11.0); Monocytes % 10.6; Neutrophils % 62.5; Platelet Count 219 10^3/uL (130-400); RBC 4.18 10^6/uL (4.36-5.78); RDW 11.9 % (11.8-14.1); RDW-SD 38.5 fL; WBC 5.58 10^3/uL (4.4-10.8)
[2021-02-02 09:50] LABS: Abs Immature Grans 0.01 10^3/uL (0.0-0.06); Immature Grans % 0.2; Nucleated RBC 0 %
[2021-02-02] MEDS: Sucralfate 1 GM TAB PO (11:42)
--- NOTE | 2021-02-02 13:04 | W.PM.DS.N ---
Date of service: 02/02/21 Time of Service: 13:05 DS: Diagnosis Discharge Diagnosis (1) Anxiety: Start date: 02/02/21 Start time: 13:05 Status: Chronic Asessment and Plan: Severe anxiety. Dr. Francois consulted he agrees that his nausea and vomiting are manifestations of his anxiety and depression due to trauma and PTSD. He recommended increasing buspar to 20 mg TID, clonidine 0.1 mg TID, and continuing wellbutrin 150 xl He also recommends CBT as an outpatient. Patient feels much better today. He was able to tolerate a small amount of food. No vomiting. He is ready to be discharged Will be discharged home on compazine, tigan, clonidine, protonix, carafate, buspar, wellbutrin, with recommendation to follow up with a therapist. He has a list and states he will seek treatment. (2) Depression: Start date: 02/02/21 Start time: 13:10 Status: Chronic Asessment and Plan: as above (3) Abdominal pain: Start date: 02/02/21 Start time: 13:10 Status: Resolved Asessment and Plan: improved. will give protonix and carafate, EGD scheduled for tomorrow. discussed with Dr. Norman Discharge Plan Disposition Patient Disposition: HOME Condition: Improving Discharge Details Reason For Visit: Hyperemesis Admit Date/Time: 01/29/21 13:01 Admit Provider: Bladimir Newby Attending Provider: Bladimir Newby Primary Care Provider: Domingo Hedrick Hospital Course Hospital Course: 26 y.o male admitted with intractable nausea and vomiting. Thought to be d/t marijuana use however UDS was negative. 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 He suffers severe PTSD and anxiety, per Dr. Francois, who saw patient as a consult. CT scan in ED revealed Under distended ascending, transverse and descending colon with mild mucosal thickening which could be due to underdistention versus mild colitis. Correlate clinically. 2. Otherwise no acute abdominal abnormality. He did have an elevated bili however he does have Gilbert disease. He has had vomiting every day, yesterday tigan was added to regimen along with Dr. Francois recommendations see above. Since then he has not vomited. He was able to tolerate food today. Therefore he will be discharged home. He denies CP, SOB, N/V/D. Home Meds and New Rx's Prescriptions: New buspirone 5 mg Tablet 20 mg PO TID Qty: 90 RF: 0 bupropion HCl 150 mg Tablet Extended Release 24 Hr 150 mg PO DAILY Qty: 30 RF: 0 clonidine HCl 0.1 mg tablet 0.1 mg PO TID Qty: 90 RF: 0 pantoprazole [Protonix] 40 mg tablet,delayed release (DR/EC) 40 mg PO BID Qty: 60 RF: 0 prochlorperazine maleate 10 mg Tablet 10 mg PO Q4H PRN PRNQty: 30 RF: 0 trimethobenzamide 300 mg Capsule 300 mg PO QID PRN PRNQty: 30 RF: 0 Continued Sore Throat (phenol) 1.4 % Aerosol,[place] 180 ml mucous membrane QID PRN PRNQty: 0 RF: 0 sucralfate [Carafate] 1 gram tablet 1 g PO QACHS Qty: 120 RF: 0 cyanocobalamin (vitamin B-12) 1,000 mcg capsule 1,000 mcg PO DAILY Qty: 30 RF: 0 multivitamin Capsule 1 cap PO DAILY RF: 0 Discontinued metoclopramide HCl 10 mg Tablet 10 mg PO AC & HS Qty: 120 RF: 0 pantoprazole [Protonix] 40 mg tablet,delayed release (DR/EC) 40 mg PO DAILY Qty: 30 RF: 0 sertraline 25 mg tablet 25 mg PO DAILY RF: 0 Discharge Instructions Instructions: Depression (DC), Post Traumatic Stress Disorder (DC), Generalized Anxiety Disorder (ED), Acute Nausea and Vomiting (DC), Anxiety (DC) Additional Instructions: Follow up with PCP in 1 week Make appt with therapist as soon as possible Start with soft bland diet until stomach feeling better, take protonix twice a day and carafate before every meal Take buspar up to 3 times a day as needed Take clonidine 3 times a day Take wellbutrin daily Activity:: Activity as Tolerated Equipment/Supplies:: No Equipment Needed Diet:: soft diet Discharge Orders Discharge Orders: Discharge Order (Routine); Ordered 02/02/21 Ordered By: Fara Alicea DS: Summary Time Spent with Patient providing and/or coordinating discharge services: Greater than 30 minutes Status at Discharge Functional status at discharge: independent ambulation Overall status at discharge: patient is progressing back to baseline Mental Status: mental status grossly normal Speech and Movement: speech and movement normal Mood: anxious mood (improved from admission) Affect: blunted Exam Narrative Exam Narrative: Appears better today. Const General: cooperative and ill appearing chronically Nutritional Appearance: average body habitus Orientation: alert, awake and oriented x3 HENMT Head: normal to inspection, no palpable skull fracture, normocephalic and atraumatic Ears: hearing grossly normal bilaterally Mouth: mucous membranes dry Eyes Sclera: sclerae normal Pupils: PERRL Neck Neck: full ROM and no lymphadenopathy Lymphatic: no lymphadenopathy noted Chest Chest: normal inspection of the chest Resp Effort & Inspection: normal respiratory effort Auscultation: clear to auscultation bilaterally Cardio Jugular venous pressure: no JVD Rate: regular rate Rhythm: regular rhythm Heart Sounds: S1 normal and S2 normal GI Inspection: normal to inspection Palpation: soft and no hepatosplenomegaly Auscultation: normal bowel sounds Skin General skin exam: no rashes or lesions noted Extrem General: no pedal edema and no calf tenderness Psych Mental Status: mental status grossly normal Speech and Movement: speech and movement normal Mood: anxious mood (improved from admission) Affect: blunted DS: Data Vitals/I&O Vitals and I&O: Vital Signs Temperature 36.5 C 02/02/21 07:27 Temperature Source Tympanic 02/02/21 07:27 Pulse 64 02/02/21 07:27 Pulse Rhythm Regular 02/02/21 07:45 Pulse 102 H 01/29/21 13:10 Respiratory Rate 17 02/02/21 07:27 Respiratory Effort Non-Labored 02/02/21 07:45 Respiratory Depth Normal 02/02/21 07:45 Respiratory Pattern Normal 02/02/21 07:45 Blood Pressure 105/62 02/02/21 07:27 Blood Pressure Mean 89 01/29/21 13:01 Blood Pressure Position Supine 01/29/21 08:17 Pulse Oximetry 98 02/02/21 07:27 Oxygen Delivery Method Room Air 02/02/21 07:27 Oxygen Flow Rate 0 02/02/21 07:27 Pain Level 0 02/02/21 07:27 Comment 01/31/21 15:50 Intake & Output 02/01/21 02/02/21 02/02/21 23:59 11:59 23:59 Intake Total 1020 / 4640.599 7063 / 1395 Output Total 750 / 1480 Balance 270 / 206.379 1493 / 1395 Intake: IV 1000 / 3381.692 3290 / 1395 Oral 20 / 20 Output: Urine 550 / 1280 Emesis 200 / 200 Other: Urine Color Straw Urine Appearance Clear Urine Odor Normal Comment pT bring self to bathroom. Emesis Description Bile Voiding Methods Urinal Toilet Data Completed and Pending Completed studies during hospitalization [Text1]: : 1995Age: 26 Exam(s) a CT:CT abdomen & pelvis w Exam(s) CT ABDOMEN PELVIS W EXAM: CT ABDOMEN PELVIS W CLINICAL HISTORY: hyperemesis TECHNIQUE: Imaging Protocol: Axial computed tomography images with coronal and sagittal reformatted images were created and reviewed CONTRAST MATERIAL: Intravenous: Omnipaque 350 Contrast volume:100 mL Oral: No COMPARISON: CT CT ABDOMEN PELVIS W from 01/04/2021 FINDINGS: The examination is limited due to patient motion artifact. ABDOMEN: Lung Bases: Normal where visualized. Small hiatal hernia. Liver: Normal density. No measurable mass. Portal, Superior Mesenteric, and Splenic Veins: Unremarkable. Gallbladder and Biliary Tract: No radiodense calculus or dilation. Pancreas: Normal density, no abnormal calcifications or inflammatory process. Spleen: Normal. Adrenals: No masses seen. Kidneys: Normal size, contour and axis. No radiodense stones or obstructive uropathy. No masses seen. Abdominal Aorta: Abdominal portion non-dilated. Bowel: No evidence of obstruction. Portions of the ascending transverse and descending colon are not completely distended. This does limit evaluation. No definite pericolonic inflammatory changes are seen. No evidence of appendicitis. Peritoneal Cavity: There is a small amount of free fluid in the pelvis. No free air. Lymph Nodes: Within normal limits. Bones: Within normal limits for the patient's age. There is L5 spondylolysis and grade 1 spondylolisthesis of L5 on S1. Soft Tissues: Unremarkable. PELVIS: Bladder: Symmetric distention, no gross wall thickening. Reproductive Organs: Unremarkable as visualized. Lymph Nodes: Within normal limits. Bones: Within normal limits for the patient's age. IMPRESSION: Underdistention of portions of the colon. This likely accounts for the bowel wall thickening. Colitis cannot be entirely excluded. Please correlate clinically. Labs on day of discharge: Labs from last 24 hours 02/02/21 02/02/21 02/02/21 06:58 06:58 06:58 WBC 5.58 RBC 4.18 L Hgb 13.0 L Hct 37.2 L MCV 89.0 MCH 31.1 MCHC 34.9 RDW 11.9 Plt Count 219 MPV 10.6 Immature Gran % 0.2 Neutrophils % 62.5 Lymphocytes % 24.0 Monocytes % 10.6 Eosinophils % 2.2 Basophils % 0.5 Nucleated RBC % 0 Absolute Neutrophils 3.49 Absolute Lymphocytes 1.34 Absolute Monocytes 0.59 Absolute Eosinophils 0.12 Absolute Basophils 0.03 Sodium 140 Potassium 3.6 Chloride 103 Carbon Dioxide 25.0 Anion Gap 12.0 H BUN 6 L Creatinine 0.9 Estimated GFR/1.73 m2 >= 60.00 Glucose 84 Calcium 8.6 Magnesium 2.1 Total Bilirubin 2.9 H Conjugated Bilirubin 0.3 H AST 20 ALT 24 Alkaline Phosphatase 44 L Total Protein 6.1 L Albumin 3.5 PFSH Active Problem List Hypokalemia (Acute) Abdominal pain (Acute) Nausea & vomiting (Acute) B12 deficiency (Acute) DVT prophylaxis (Acute) Discharge planning issues (Acute) Gilbert disease (Chronic) Intractable vomiting with nausea (Acute) Social History Smoking/Tobacco Use Status: Never Smoking risk assessment performed?: Yes Alcohol Intake: never Drug use: Never Substance use type: does not use Do you feel safe at home: Yes Do you feel safe in your relationship?: Yes
--- NOTE | 2021-02-02 18:08 | PDOC.CMDIS ---
- If Service Date Differs Date of service: 02/02/21 Time of Service: 18:08 LACE Index Scoring Tool - Questions: Length of Stay (in days): 4 - 6 Acuity (Admit via E.D.?): Yes E.D. Visits: 3 - Answers: Total Score: 10 Risk of Readmission: High Risk Care Management Discharge Reason for Hospitalization: Gilbert Disease - intractable vomiting Discharge Plan: Discharge home via private vehicle with family. Eat a soft bland diet and take medications as prescribed. Follow up with PCP in 1 week (CM notified PCP, appointment to follow) and establish care with a therapist. Patient/Family Education Needs: Review discharge instructions, limitations, medications and plan to follow up with community providers. ask me three.
== END 2021-02-02 15:04 | disposition home or self-care (01) | DRG 880 ==
LOC: ER 08:17 → MS 13:44
PROVIDERS: Nurse Practitioner Family; Admitting Provider Family Medicine; Emergency Provider Student in an Organized Health Care Education/Training Program; PCP Physician Assistant Medical; Visit Provider Family Medicine
DX: F41.9 Anxiety disorder, unspecified (principal); R11.2 Nausea with vomiting, unspecified; E87.6 Hypokalemia; R63.4 Abnormal weight loss; F32.A Depression, unspecified; R10.84 Generalized abdominal pain; E80.4 Gilbert syndrome; E53.8 Deficiency of other specified B group vitamins; F43.10 Post-traumatic stress disorder, unspecified; Z20.822 Contact with and (suspected) exposure to COVID-19; Z68.23 Body mass index [BMI] 23.0-23.9, adult
CPT/HCPCS: 36415; 80048; 80053; 80076; 80307; 83690; 87635; 93005; 96361; 96365; 96366; 96375; 96376; 99285; J1650; 74177; 81003; 83735; 85025; 93010; 99223; 99232; 99233; 99239; 99284; J2060; J2405; J2765; J3360; J3480; J3490